=== PATIENT | female | born 1950 | race Caucasian/White ===

== ENCOUNTER 2017-12-09 12:48 | Inpatient (IN) | payer MEDICARE, OTHER ==
[2017-12-09] VITALS (13 sets, daily range): BP systolic 145–192; BP diastolic 67–95; PULSE 103–132; RESP 20–39; TEMP 99.1–102.4; O2SAT 20–100
[2017-12-09] MEDS ORDERED: TRAM50TA PO (13:11)
[2017-12-09] MEDS ORDERED: PROM25TA10 PO (13:11)
[2017-12-09] MEDS ORDERED: METF500T PO (13:11)
[2017-12-09] MEDS ORDERED: CLON0.5T PO (13:11)
[2017-12-09 13:42] LABS: AUTOMATED NEUTROPHIL # 8.3 TH/MM3 (1.8-7.7); BASOPHIL # 0.1 TH/MM3 (0-0.2); BASOPHIL % 0.7 % (0.0-2.0); EOSINOPHIL % 0.1 % (0.0-4.0); HEMATOCRIT 42.6 % (35.0-46.0); HEMOGLOBIN 14.4 GM/DL (11.6-15.3); LYMPH % 14.5 % (9.0-44.0); LYMPHOCYTE # 1.5 TH/MM3 (1.0-4.8); MEAN CELL VOLUME 90.1 FL (80.0-100.0); MEAN CORPUSCULAR HEMOGLOBIN 30.5 PG (27.0-34.0); MEAN CORPUSCULAR HGB CONC 33.8 % (32.0-36.0); MEAN PLATELET VOLUME 8.7 FL (7.0-11.0); MONO % 3.4 % (0.0-8.0); MONOCYTE # 0.4 TH/MM3 (0-0.9); NEUT % 81.3 % (16.0-70.0); PLATELET COUNT 238 TH/MM3 (150-450); RED BLOOD COUNT 4.73 MIL/MM3 (4.00-5.30); RED CELL DISTRIBUTION WIDTH 11.8 % (11.6-17.2); WHITE BLOOD COUNT 10.3 TH/MM3 (4.0-11.0)
[2017-12-09] MEDS ORDERED: SODIUM CHLORIDE 0.9% FLUSH 10 ML FLUSH IV FLUSH PRN (13:45)
[2017-12-09 13:50] LABS: BILIRUBIN, URINE NEG (NEG); BLOOD, URINE NEG (NEG); GLUCOSE,URINE NEG (NEG); KETONE, URINE 40 mg/dL (NEG); NITRITE,URINE NEG (NEG); PH, URINE 6.5 (5.0-8.5); URINE LEUKOCYTE ESTERASE NEG (NEG)
[2017-12-09 13:50] LABS: CHLORIDE 96 MEQ/L (98-107); SODIUM (NA) 132 MEQ/L (136-145)
[2017-12-09 13:54] LABS: ALBUMIN 3.8 GM/DL (3.4-5.0); BLOOD UREA NITROGEN 10 MG/DL (7-18); GLUCOSE,RANDOM 197 MG/DL (74-106)
[2017-12-09 13:57] LABS: ALT (GPT) 27 U/L (10-53); AST (GOT) 20 U/L (15-37)
[2017-12-09 13:58] LABS: CREATININE 0.57 MG/DL (0.50-1.00); GLOMERULAR FILTRATION RATE 106 ML/MIN (>89)
[2017-12-09 13:59] LABS: TOTAL BILIRUBIN ADULT 0.4 MG/DL (0.2-1.0); TOTAL PROTEIN 7.8 GM/DL (6.4-8.2)
[2017-12-09 14:00] LABS: ALKALINE PHOSPHATASE 105 U/L (45-117)
[2017-12-09 14:02] LABS: TROPONIN I LESS THAN 0.02 NG/ML (0.02-0.05)
[2017-12-09 14:06] LABS: URINE COLOR YELLOW (YELLW/STRAW)
[2017-12-09 14:07] LABS: BACTERIA, URINE FEW /hpf; RBC, URINE 0-3 /hpf (0-3); SQUAMOUS EPITHELIAL CELL URINE 0-5 /hpf (0-5)
--- NOTE | 2017-12-09 14:14 | RADRPT ---
EXAM DATE/TIME: 12/09/2017 13:54 [facility] COMPARISON: No previous studies available for comparison. INDICATIONS : Altered mental status. Cephalgia. RADIATION DOSE: 63.65 CTDIvol (mGy) MEDICAL HISTORY : Diabetes mellitus type 2. Hypertension. SURGICAL HISTORY : None. ENCOUNTER: Initial ACUITY: 1 day PAIN SCALE: 7/10 LOCATION: cranial TECHNIQUE: Multiple contiguous axial images were obtained of the head. Using automated exposure control and adj ustment of the mA and/or kV according to patient size, radiation dose was kept as low as reasonably a chievable to obtain optimal diagnostic quality images. DICOM format image data is available electro nically for review and comparison. FINDINGS: CEREBRUM: The examination demonstrates a punctate area of cortical infarct within the white matter of right par ietal cortex. The remainder of the brain parenchyma is unremarkable appearance. No mass lesion is see n. There is no acute cranial hemorrhage. No extra-axial fluid collections are identified. POSTERIOR FOSSA: The cerebellum and brainstem are intact. The 4th ventricle is midline. The cerebellopontine angle i s unremarkable. EXTRACRANIAL: The visualized portion of the orbits is intact. SKULL: The calvaria is intact. No evidence of skull fracture. CONCLUSION: 1. 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 2. No acute intracranial abnormality is identified. Severino Fabian MD on December 09, 2017 at 14:06 Board Certified Radiologist. This report was verified electronically.
--- NOTE | 2017-12-09 14:27 | PD ---
HPI . Altered mental status Chief Complaint: Altered Mental Status Time Seen by Provider: 13:30 Travel History International Travel<30 days: No Contact w/Intl Traveler<30days: No Traveled to known affect area: No History of Present Illness HPI History is very sketchy. History was obtained from her friend. The friend reports that they were playing cards last night and that the patient seemed normal. Complaining with a mild headache and took something for it. She was last seen normal at 8 PM last night. The patient presents house this morning and was very confused. She was unable to recall simple things such as her son' s phone number for her pass code to unlock her phone. She was vomiting. The friend was concerned and brought her here. The patient states that she "hurts." I asked her if she had a headache and she responded "yes." She is able to tell me that the head pain is "bad." PFSH Past Medical History Diabetes: Yes Patient Takes Glucophage: Yes Hypertension: Yes Social History Alcohol Use: No Tobacco Use: No Substance Use: No Allergies-Medications (Allergen,Severity, Reaction): Coded Allergies: No Known Allergies (Unverified , 12/09/17) Reported Meds & Prescriptions Reported Meds & Active Scripts Active Reported Clonazepam 0.5 Mg Tab 0.5 Mg PO BID Tramadol (Tramadol HCl) 50 Mg Tab 50 Mg PO Q6H PRN Metformin (Metformin HCl) 500 Mg Tab 500 Mg PO BIDPC Phenergan (Promethazine HCl) 25 Mg Tablet 25 Mg PO Q6H PRN Review of Systems ROS Limitations: Clinical Condition, Altered Mental Status Physical Exam Narrative GENERAL: Patient is lying on stretcher sometimes with her eyes closed. She has bilious emesis on the front of her down. SKIN: warm/dry. HEAD: Normocephalic. Atraumatic. EYES: Pupils equal and round. Pupils appear normal size. Extraocular movements are intact. No scleral icterus. No injection or drainage. ENT: No nasal bleeding or discharge. Mucous membranes pink and moist. NECK: Trachea midline. Full range of motion without pain.. Supple. CARDIOVASCULAR: Regular rate and rhythm. RESPIRATORY: No accessory muscle use. Clear to auscultation. Breath sounds equal bilaterally. GASTROINTESTINAL: Abdomen soft. Nontender. Bowel sounds present. Nondistended. MUSCULOSKELETAL: No obvious deformities. NEUROLOGICAL: Awake and alert. She is able to tell me her name. She follows commands although sometimes she is slow to follow commands. Cranial nerves II through XII are grossly intact. 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 Finger- nose-finger exam is slow but intact. Babinski's are downgoing bilaterally. PSYCHIATRIC: Unable to assess. Data Data Last Documented VS Vital Signs Date Time Temp Pulse Resp B/P (MAP) Pulse Ox O2 Delivery O2 Flow Rate FiO2 12/09/17 15:51 110 20 160/74 (102) 100 12/09/17 13:05 99.1 Orders Orders Complete Blood Count With Diff (12/09/17 13:31) Comprehensive Metabolic Panel (12/09/17 13:31) Creatine Kinase (Cpk) (12/09/17 13:31) Prothrombin Time / Inr (Pt) (12/09/17 13:31) Act Partial Throm Time (Ptt) (12/09/17 13:31) Troponin I (12/09/17 13:31) Urinalysis - C+S If Indicated (12/09/17 13:31) Ct Brain W/O Iv Contrast(Rout) (12/09/17 13:31) Blood Glucose (12/09/17 13:31) Ecg Monitoring (12/09/17 13:31) Iv Access Insert/Monitor (12/09/17 13:31) Cath For Specimen (12/09/17 13:31) Oximetry (12/09/17 13:31) Sodium Chloride 0.9% Flush (Ns Flush) (12/09/17 13:45) Drug Screen, Random Urine (12/09/17 13:31) Urine Culture (12/09/17 13:45) Diphenhydramine Inj (Benadryl Inj) (12/09/17 14:30) Prochlorperazine Inj (Compazine Inj) (12/09/17 14:30) Electrocardiogram (12/09/17 12:55) Lumbar Puncture (12/09/17 ) Vital Signs (Adult) .On admission (12/09/17 15:39) Notify Radiology (12/09/17 15:39) Diet Npo (12/09/17 Dinner) Bacterial Antigen Csf (12/09/17 15:39) Csf Hsv I/Ii Dna,Pcr (12/09/17 15:39) Csf Cell Count + Differential (12/09/17 15:39) Glucose, Csf (12/09/17 15:39) Total Protein, Csf (12/09/17 15:39) Csf Culture And Gram Stain (12/09/17 15:39) Admit Order (Ed Use Only) (12/09/17 ) Vital Signs (Adult) Q4H (12/09/17 16:25) Activity Bed Rest (12/09/17 16:25) Notify Dr: Other (12/09/17 16:25) Labs Laboratory Tests Test 12/09/17 13:35 12/09/17 13:45 White Blood Count 10.3 TH/MM3 Red Blood Count 4.73 MIL/MM3 Hemoglobin 14.4 GM/DL Hematocrit 42.6 % Mean Corpuscular Volume 90.1 FL Mean Corpuscular Hemoglobin 30.5 PG Mean Corpuscular Hemoglobin Concent 33.8 % Red Cell Distribution Width 11.8 % Platelet Count 238 TH/MM3 Mean Platelet Volume 8.7 FL Neutrophils (%) (Auto) 81.3 % Lymphocytes (%) (Auto) 14.5 % Monocytes (%) (Auto) 3.4 % Eosinophils (%) (Auto) 0.1 % Basophils (%) (Auto) 0.7 % Neutrophils # (Auto) 8.3 TH/MM3 Lymphocytes # (Auto) 1.5 TH/MM3 Monocytes # (Auto) 0.4 TH/MM3 Eosinophils # (Auto) 0.0 TH/MM3 Basophils # (Auto) 0.1 TH/MM3 CBC Comment DIFF FINAL Differential Comment Prothrombin Time 10.0 SEC Prothromb Time International Ratio 1.0 RATIO Activated Partial Thromboplast Time 24.9 SEC Blood Urea Nitrogen 10 MG/DL Creatinine 0.57 MG/DL Random Glucose 197 MG/DL Total Protein 7.8 GM/DL Albumin 3.8 GM/DL Calcium Level 9.0 MG/DL Alkaline Phosphatase 105 U/L Aspartate Amino Transf (AST/SGOT) 20 U/L Alanine Aminotransferase (ALT/SGPT) 27 U/L Total Bilirubin 0.4 MG/DL Sodium Level 132 MEQ/L Potassium Level 3.7 MEQ/L Chloride Level 96 MEQ/L Carbon Dioxide Level 26.0 MEQ/L Anion Gap 10 MEQ/L Estimat Glomerular Filtration Rate 106 ML/MIN Total Creatine Kinase 61 U/L Troponin I LESS THAN 0.02 NG/ML Urine Collection Type CATH Urine Color YELLOW Urine Turbidity CLEAR Urine pH 6.5 Urine Specific [place] 1.025 Urine Protein 100 mg/dL Urine Glucose (UA) NEG mg/dL Urine Ketones 40 mg/dL Urine Occult Blood NEG Urine Nitrite NEG Urine Bilirubin NEG Urine Leukocyte Esterase NEG Urine RBC 0-3 /hpf Urine WBC 6-8 /hpf Urine Squamous Epithelial Cells 0-5 /hpf Urine Bacteria FEW /hpf Microscopic Urinalysis Comment CULTURE INDICATED Urine Opiates Screen NEG Urine Barbiturates Screen NEG Urine Amphetamines Screen NEG Urine Benzodiazepines Screen NEG Urine Cocaine Screen NEG Urine Cannabinoids Screen NEG MDM Medical Decision Making Medical Screen Exam Complete: Yes Emergency Medical Condition: Yes Interpretation(s) EKG shows a sinus rhythm with no ST segment changes Differential Diagnosis Differential diagnosis of altered mental status includes but is not limited to infection, electrolyte abnormality, neurological event, intoxication Narrative Course This patient comes in with altered mental status. She has never been here before so old records or not helpful. She is not able to tell me anything about her past medical history. She does indicate she has a headache. She acts a little bit like someone with a head bleed. However, her neurological exam is nonfocal. She does not have any signs or symptoms of meningitis such as fever or stiff neck. I am treating her apparent headache with Compazine and Benadryl. Last Impressions Head CT 12/09/17 1331 Signed Impressions: Service Date/Time: Saturday, December 09, 2017 13:54 - CONCLUSION: 1. 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 2. No acute intracranial abnormality is identified. Severino Fabian MD CBC & BMP Diagram 12/09/17 13:35 Total Protein 7.8, Albumin 3.8, Calcium Level 9.0, Alkaline Phosphatase 105, Aspartate Amino Transf (AST/SGOT) 20, Alanine Aminotransferase (ALT/SGPT) 27, Total Bilirubin 0.4 UA>>6-8 WBC and few bact but is nit and LE neg. Drug screen is neg. I have not found an etiology for this patient's altered mental status. I will proceed with a spinal tap. Spinal tap was not successful. It will be done by IR. The patient will be admitted to the hospital for further evaluation and treatment. Critical Care Narrative Aggregate critical care time was 60 minutes. Time to perform other separately billable procedures was not included in the critical care time. My time did not include minutes spent treating any other patients simultaneously or on activities that did not directly contribute to the patient's treatment. The services I provided to this patient were to treat and/or prevent clinically significant deterioration due to altered mental status I provided critical care services requiring my management, as noted below: Chart data review, documentation time, medication orders and management, vital sign assessments/reviewing monitor data, ordering and reviewing lab tests, ordering and interpreting/reviewing x-rays and diagnostic studies, care of the patient and discussion of the patient with the admitting physicians Procedures Procedure Narrative LUMBAR PUNCTURE: The patient was placed in the left lateral decubitus position. The lumbar area of the back was prepped with Betadine and sterilely draped. The L3 -- L4 interspace was infiltrated with 1% lidocaine plain. Number 23 gauge LP needle was placed in the interspace. The tap was unsuccessful. Physician Communication Physician Communication Dr. Martin Diagnosis Primary Impression: Altered mental status Qualified Codes: R41.0 - Disorientation, unspecified Admitting Information Admitting Physician Requests: Admit Condition: Stable Inez Russo MD Dec 09, 2017 14:27
[2017-12-09] MEDS ORDERED: PROCHLORPERAZINE INJ 10 MG/2 ML VIAL IV PUSH ONE (14:30)
[2017-12-09] MEDS ORDERED: diphenhydrAMINE HCL 50 MG/ML VIAL IV PUSH ONE (14:30)
--- NOTE | 2017-12-09 16:32 | EKG ---
Date Performed: 12/09/2017 Time Performed: 12:55:49 PTAGE: 67 years EKG: Sinus rhythm NONSPECIFIC T-WAVE ABNORMALITY BORDERLINE ECG NO PREVIOUS TRACING DOCTOR: Lukas Brown Interpretating Date/Time 12/09/2017 16:30:17
--- NOTE | 2017-12-09 18:17 | HHI.HP ---
[facility] Unknown Admission Diagnosis AMS Diagnoses: Chief Complaint: headache/vomiting/confusion Travel History International Travel<30 Days: No Contact w/Intl Traveler <30 Da: No Traveled to Known Affected Are: No History of Present Illness 67-year-old white female being admitted for encephalopathy, possible undiagnosed intracranial hx. history is limited as the patient is not a great historian likely from her current medical condition. Son and [id number] at bedside. Patient was in her usual state of health until sometime yesterday evening when she was playing a game and was noted to be intermittently spacing out. Later this morning her neighbors found the patient to be having a headache associated with some vomiting. They noticed that she was very confused and thus prompted her to seek medical attention. There are no reports of any falls or head trauma. Per the son, the patient has no substantial medical history except DM. There are no reports of any intracranial processes including tumors or strokes in the patient. FH: Report of a CVA in the family. Social hx entails that the patient lives by herself and there is no smoking hx. Review of Systems Except as stated in HPI: all other systems reviewed are Neg Past Family Social History Past Medical History DM Allergies: Coded Allergies: No Known Allergies (Unverified , 12/09/17) Physical Exam Vital Signs Vital Signs Date Time Temp Pulse Resp B/P (MAP) Pulse Ox O2 Delivery O2 Flow Rate FiO2 12/09/17 17:32 12/09/17 15:51 110 20 160/74 (102) 100 12/09/17 14:51 103 20 176/68 (104) 95 12/09/17 13:38 96 12/09/17 13:05 99.1 130 20 192/95 (127) 98 Physical Exam VS: afebrile GENERAL: Appears to be shivering, awake, alert, not fully cooperative with exam in the sense that she needs to be prompted a number of times to answer the same question SKIN: Warm and dry. EYES: Pupils equal and round. No scleral icterus. No injection or drainage. ENT: No nasal bleeding or discharge. Mucous membranes pink and moist. CARDIOVASCULAR: Regular rate and rhythm. no murmurs RESPIRATORY: No accessory muscle use. Clear to auscultation. Breath sounds equal bilaterally. GASTROINTESTINAL: Abdomen soft, non-tender, nondistended. Extremities: No clubbing, cyanosis, or edema. No obvious deformities. MUSCULOSKELETAL: adequate muscle bulk and tone for age and habitus NEUROLOGICAL: Awake and alert. No obvious cranial nerve deficits. No facial droop nor slurred speech noted. unable to assess BL UE prox strength either poor understanding or poor strength. Unable to dorsiflex or plantarflex her right ankle upon prompting; intact dorsiflex and plantarflexion on the left ankle. No neck rigidity. PSYCHIATRIC: Appropriate mood and affect; insight and judgment normal. Laboratory Laboratory Tests Test 12/09/17 13:35 12/09/17 13:45 White Blood Count 10.3 Red Blood Count 4.73 Hemoglobin 14.4 Hematocrit 42.6 Mean Corpuscular Volume 90.1 Mean Corpuscular Hemoglobin 30.5 Mean Corpuscular Hemoglobin Concent 33.8 Red Cell Distribution Width 11.8 Platelet Count 238 Mean Platelet Volume 8.7 Neutrophils (%) (Auto) 81.3 Lymphocytes (%) (Auto) 14.5 Monocytes (%) (Auto) 3.4 Eosinophils (%) (Auto) 0.1 Basophils (%) (Auto) 0.7 Neutrophils # (Auto) 8.3 Lymphocytes # (Auto) 1.5 Monocytes # (Auto) 0.4 Eosinophils # (Auto) 0.0 Basophils # (Auto) 0.1 CBC Comment DIFF FINAL Differential Comment Prothrombin Time 10.0 Prothromb Time International Ratio 1.0 Activated Partial Thromboplast Time 24.9 Blood Urea Nitrogen 10 Creatinine 0.57 Random Glucose 197 Total Protein 7.8 Albumin 3.8 Calcium Level 9.0 Alkaline Phosphatase 105 Aspartate Amino Transf (AST/SGOT) 20 Alanine Aminotransferase (ALT/SGPT) 27 Total Bilirubin 0.4 Sodium Level 132 Potassium Level 3.7 Chloride Level 96 Carbon Dioxide Level 26.0 Anion Gap 10 Estimat Glomerular Filtration Rate 106 Total Creatine Kinase 61 Troponin I LESS THAN 0.02 Urine Collection Type CATH Urine Color YELLOW Urine Turbidity CLEAR Urine pH 6.5 Urine Specific [place] 1.025 Urine Protein 100 Urine Glucose (UA) NEG Urine Ketones 40 Urine Occult Blood NEG Urine Nitrite NEG Urine Bilirubin NEG Urine Leukocyte Esterase NEG Urine RBC 0-3 Urine WBC 6-8 Urine Squamous Epithelial Cells 0-5 Urine Bacteria FEW Microscopic Urinalysis Comment CULTURE INDICATED Urine Opiates Screen NEG Urine Barbiturates Screen NEG Urine Amphetamines Screen NEG Urine Benzodiazepines Screen NEG Urine Cocaine Screen NEG Urine Cannabinoids Screen NEG Date/Time Source Procedure Growth Status 12/09/17 13:45 Urine Catheterized Urine Urine Culture Pending Received Result Diagram: 12/09/17 1335 12/09/17 1335 Imaging Last Impressions Head CT 12/09/17 1331 Signed Impressions: Service Date/Time: Saturday, December 09, 2017 13:54 - CONCLUSION: 1. 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 2. No acute intracranial abnormality is identified. Severino Fabian MD Last Impressions Head CT 12/09/171 Signed Impressions: Service Date/Time: Saturday, December 09, 2017 13:54 - CONCLUSION: 1. 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 2. No acute intracranial abnormality is identified. Severino Fabian MD Caprini VTE Risk Assessment Caprini VTE Risk Assessment: Mod/High Risk (score >= 2) Caprini Risk Assessment Model Point Value = 1 Point Value = 2 Point Value = 3 Point Value = 5 Age 41-60 Minor surgery BMI > 25 kg/m2 Swollen legs Varicose veins or History of unexplained or recurrent spontaneous Oral contraceptives or hormone replacement Sepsis (< 1 month) Serious lung disease, including pneumonia (< 1 month) Abnormal pulmonary function Acute myocardial infarction Congestive heart failure (< 1 month) History of inflammatory bowel disease Medical patient at bed rest Age 61-74 Arthroscopic surgery Major open surgery (> 45 min) Laparoscopic surgery (> 45 min) Malignancy Confined to bed (> 72 hours) Immobilizing plaster cast Central venous access Age >= 75 History of VTE Family history of VTE Factor V Leiden Prothrombin [id number] Lupus anticoagulant Anticardiolipin antibodies Elevated serum homocysteine Heparin-induced thrombocytopenia Other congenital or acquired thrombophilia Stroke (< 1 month) Elective arthroplasty Hip, pelvis, or leg fracture Acute spinal cord injury (< 1 month) Prophylaxis Regimen Total Risk Factor Score Risk Level Prophylaxis Regimen 0-1 Low Early ambulation 2 Moderate Order ONE of the following: *Sequential Compression Device (SCD) *Heparin 5000 units SQ BID 3-4 Higher Order ONE of the following medications: *Heparin 5000 units SQ TID *Enoxaparin/Lovenox 40 mg SQ daily (WT < 150 kg, CrCl > 30 mL/min) *Enoxaparin/Lovenox 30 mg SQ daily (WT < 150 kg, CrCl > 10-29 mL/min) *Enoxaparin/Lovenox 30 mg SQ BID (WT < 150 kg, CrCl > 30 mL/min) AND/OR *Sequential Compression Device (SCD) 5 or more Highest Order ONE of the following medications: *Heparin 5000 units SQ TID (Preferred with Epidurals) *Enoxaparin/Lovenox 40 mg SQ daily (WT < 150 kg, CrCl > 30 mL/min) *Enoxaparin/Lovenox 30 mg SQ daily (WT < 150 kg, CrCl > 10-29 mL/min) *Enoxaparin/Lovenox 30 mg SQ BID (WT < 150 kg, CrCl > 30 mL/min) AND *Sequential Compression Device (SCD) Assessment and Plan Assessment and Plan Encephalopathy - No clear etiology at this time pinpointed but possible subarachnoid hemorrhage needs to be ruled out given symptoms that are consistent with increased intracranial pressure -in this case this patient had a headache with vomiting and confusion. Head CT is negative. LP in ER unsuccessful. IR to perform LP. 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 In the case of services not specified as inpatient-only, they are appropriately provided as inpatient services in accordance with the 2-midnight benchmark. Estimated LOS (days): 3 3 days is the estimated time the patient will need to remain in the hospital, assuming treatment plan goals are met and no additional complications. Post-Hospital Plan: Home Tj Martin MD Dec 09, 2017 18:17
[2017-12-09] MEDS ORDERED: DEXTROSE 50% IN WATER 50 ML VIAL(D50) IV PUSH PRN (18:30)
[2017-12-09] MEDS ORDERED: LORazepam 1 MG TAB PO PRN (18:30)
[2017-12-09] MEDS ORDERED: traMADol HCL 50 MG TAB PO PRN (18:30)
[2017-12-09] MEDS ORDERED: PROMETHAZINE HCL 25 MG TAB PO PRN (18:30)
[2017-12-09] MEDS ORDERED: GLUCAGON 1 MG/ML VIAL OTHER PRN (18:30)
--- NOTE | 2017-12-09 18:54 | PD.RAD ---
Post Procedure Progress Note Pre Procedure Diagnosis: (1) Altered mental status Post Procedure Diagnosis: (1) Altered mental status Procedure Date: Dec 09, 2017 Supervising Radiologist: Jc Marc Proceduralist/Assist: Marguerite Centeno RT(R)(), Viktor Brown RT(R) Anesthesia: Local Plan of Activity Patient to Unit: Nursing Unit Patient Condition: Fair See PACS Report for procedural detail/treatment Spinal Procedure Lumbar Puncture L3-L4 Fluid Removal (CCs): 12 Fluid Description: Clear Puncture Time: 18:45 Jc Marc MD Dec 09, 2017 18:54
--- NOTE | 2017-12-09 18:58 | RADRPT ---
EXAM DATE/TIME: 12/09/2017 18:16 [facility] COMPARISON: No previous studies available for comparison. INDICATIONS : Evaluate for infection. MEDICAL HISTORY : Diabetes mellitus type 2. Hypertension SURGICAL HISTORY : None. ENCOUNTER: Initial ACUITY: 1 day PAIN SCORE: 0/10 LOCATION: Bilateral chest FINDINGS: PA and lateral views of the chest demonstrate the lungs to be symmetrically aerated without evidence of mass, infiltrate or effusion. The cardiomediastinal contours are unremarkable. Osseous structure s are intact. CONCLUSION: 1. No acute cardiopulmonary disease. Ej Rivas MD on December 09, 2017 at 18:57 Board Certified Radiologist. This report was verified electronically.
[2017-12-09 20:34] LABS: TOTAL PROTEIN,CSF 30.9 MG/DL (15.0-45.0)
[2017-12-09] MEDS: cefTRIAXone INJ 1,000 MG in SODIUM CHLORIDE 0.9% INJ 100 ML IV SCH (20:36)
[2017-12-09] MEDS: INSULIN NovoLIN REGULAR SUPPLEMENTAL SCALE SQ SCH (20:36)
[2017-12-09] MEDS: SODIUM CHLOR 0.9% 1000 ML INJ 1,000 ML IV SCH (20:37)
[2017-12-09 20:52] LABS: RBC TUBE #1 138 /MM3; SUPERNATE COLOR TUBE #1 CLEAR (CLEAR); VOLUME TUBE # 1 1.3 ML; WBC TUBE #1 3 /MM3 (0-10)
[2017-12-09 20:53] LABS: CSF HISTIOCYTES 4 %; CSF LYMPHOCYTES 70 %; CSF NEUTROPHILS 26 %
[2017-12-09 20:54] LABS: CSF LYMPHOCYTES 79 %; CSF NEUTROPHILS 14 %; RBC TUBE #4 79 /MM3; WBC TUBE #4 14 /MM3 (0-10)
[2017-12-09 20:55] LABS: CSF HISTIOCYTES 7 %
[2017-12-09] MEDS ORDERED: ACETAMINOPHEN 650 MG SUPP RECTAL ONE (22:15)
[2017-12-09] MEDS ORDERED: ACETAMINOPHEN 650 MG SUPP RECTAL PRN (22:15)
[2017-12-09] MEDS ORDERED: CHLORHEXIDINE GLUCONATE 2 % 1 PACK (2 CLOTHS)(extra cloths) TOPICAL PRN (23:30)
[2017-12-10] VITALS (39 sets, daily range): BP systolic 144–191; BP diastolic 68–96; PULSE 72–128; RESP 22–39; TEMP 99.2–101.7; O2SAT 91–98
[2017-12-10] MEDS: SODIUM CHLOR 0.9% 1000 ML INJ 1,000 ML IV SCH ×3 (04:00→20:18)
[2017-12-10] MEDS: CHLORHEXIDINE GLUCONATE 2 % 1 PACK (2 CLOTHS)(taper/protocol) TOPICAL SCH (04:00)
[2017-12-10] MEDS: INSULIN NovoLIN REGULAR SUPPLEMENTAL SCALE SQ SCH ×4 (07:33→20:21)
[2017-12-10 07:46] LABS: AUTOMATED NEUTROPHIL # 8.6 TH/MM3 (1.8-7.7); BASOPHIL # 0.4 TH/MM3 (0-0.2); BASOPHIL % 2.9 % (0.0-2.0); EOSINOPHIL % 0.1 % (0.0-4.0); HEMATOCRIT 39.4 % (35.0-46.0); HEMOGLOBIN 13.5 GM/DL (11.6-15.3); LYMPH % 18.4 % (9.0-44.0); LYMPHOCYTE # 2.2 TH/MM3 (1.0-4.8); MEAN CORPUSCULAR HGB CONC 34.4 % (32.0-36.0); MEAN PLATELET VOLUME 8.3 FL (7.0-11.0); MONO % 7.2 % (0.0-8.0); MONOCYTE # 0.9 TH/MM3 (0-0.9); NEUT % 71.4 % (16.0-70.0); PLATELET COUNT 255 TH/MM3 (150-450); RED BLOOD COUNT 4.38 MIL/MM3 (4.00-5.30); RED CELL DISTRIBUTION WIDTH 12.2 % (11.6-17.2); WHITE BLOOD COUNT 12.1 TH/MM3 (4.0-11.0)
[2017-12-10 07:58] LABS: CALCIUM 8.4 MG/DL (8.5-10.1)
[2017-12-10 07:59] LABS: BICARBONATE 25.7 MEQ/L (21.0-32.0)
[2017-12-10 08:02] LABS: CREATININE 0.61 MG/DL (0.50-1.00)
--- NOTE | 2017-12-10 11:36 | RADRPT ---
EXAM DATE/TIME: 12/09/2017 18:30 [facility] COMPARISON: No previous studies available for comparison. INDICATIONS : Patient presents with altered mental status in need of lumbar puncture for further evaluation. MEDICAL HISTORY : DM HTN SURGICAL HISTORY : N/a ENCOUNTER: Initial ACUITY: 1 day PAIN SCORE: 5/10 LOCATION: Headache LUMBAR PUNCTURE TIME: 18:43 hours FLUORO TIME: 1.0 minutes IMAGE SERIES: 0 ACCESS LEVEL: L3-4 FLUID: 11.5 cc of clear CSF was collected and sent to the laboratory for analysis. PROCEDURE : 1. Fluoroscopic guided lumbar puncture. The risks, benefits and alternatives to the procedure were explained and verbal and written consent w as obtained. The site was prepped in sterile fashion. Full sterile technique was used, including ca p, mask, sterile gloves and gown and a large sterile sheet. Hand hygiene and 2% chlorhexidine and/or betadine/alcohol prep was utilized per protocol for cutaneous antisepsis. The skin and subcutaneous tissues were infiltrated with local anesthetic solution. With fluoroscopic guidance the lumbar thecal sac was punctured at the level above. The fluid describ ed above was removed without difficulty. The patient tolerated the procedure well and there were no complications. CONCLUSION: Uncomplicated fluoroscopically guided lumbar puncture. Jc Marc MD on December 10, 2017 at 11:34 Board Certified Radiologist. This report was verified electronically.
--- NOTE | 2017-12-10 12:06 | HHI.PR ---
Subjective Remarks Patient sleeping in bed, woke up to voice, she only was oriented to person she recognized her son, but otherwise she was confused and noncoherent Discussed with the son, patient has been running fever all night long max 102.4 , she was started on Rocephin, I will add vancomycin and ampicillin for bacterial meningitis coverage awaiting for the full results of CSF, also will add acyclovir, and I will consult ID, awaiting neurology consultation, MRI has not been done yet, awaiting organic extractions technician to come from [facility] for an MRI Objective Vitals Vital Signs Date Time Temp Pulse Resp B/P (MAP) Pulse Ox O2 Delivery O2 Flow Rate FiO2 12/10/17 11:20 99.2 12/10/17 10:01 84 27 158/74 (102) 98 12/10/17 10:00 78 12/10/17 09:01 106 27 165/68 (100) 95 12/10/17 09:00 99.2 12/10/17 08:30 100.2 12/10/17 08:00 86 25 178/77 (110) 93 12/10/17 08:00 86 12/10/17 07:51 96 28 175/87 (116) 95 12/10/17 07:50 Nasal Cannula 12/10/17 07:30 101.4 87 12/10/17 07:01 114 31 168/79 (108) 93 12/10/17 06:01 108 26 168/73 (104) 94 12/10/17 06:00 112 12/10/17 05:01 98 25 173/74 (107) 96 12/10/17 04:01 100.0 118 26 166/90 (115) 93 12/10/17 04:00 126 12/10/17 03:01 108 27 173/76 (108) 94 12/10/17 02:01 122 31 173/77 (109) 94 12/10/17 02:00 124 12/10/17 01:01 102 27 166/70 (102) 96 12/10/17 00:01 101.7 126 32 144/72 (96) 93 12/10/17 00:00 128 12/09/17 23:01 132 32 170/79 (109) 93 12/09/17 22:01 126 39 145/69 (94) 92 2/23/18 22:00 132 12/09/17 21:47 100.2 12/09/17 21:01 130 31 145/71 (95) 91 12/09/17 20:36 132 25 147/67 (93) 93 12/09/17 20:13 102.4 12/09/17 20:00 108 12/09/17 19:05 151/69 (96) 12/09/17 17:32 12/09/17 15:51 110 20 160/74 (102) 100 12/09/17 14:51 103 20 176/68 (104) 95 12/09/17 13:38 96 12/09/17 13:05 99.1 130 20 192/95 (127) 98 I/O 12/09/17 12/09/17 12/09/17 12/10/17 12/10/17 12/10/17 06:59 14:59 22:59 06:59 14:59 22:59 Intake Total 100 ml 1250 ml Output Total 400 ml Balance 100 ml 850 ml Intake IV Total 100 ml 1250 ml Output Urine Total 400 ml # Voids 1 Result Diagram: 12/10/17 0736 12/10/17 0736 Objective Remarks GENERAL: This is a well-nourished, well-developed patient, in no apparent distress. SKIN: No rashes, warm and dry HEAD: Atraumatic. Normocephalic. EYES: Pupils equal round and reactive. Extraocular motions intact. No scleral icterus. ENT: Nose without bleeding, or drainage, Airway patent. NECK: Trachea midline. Supple CARDIOVASCULAR: Regular rate and rhythm without murmurs, gallops, or rubs. RESPIRATORY: Fair air entry bilaterally. No wheezes, rales, or rhonchi. GASTROINTESTINAL: Abdomen soft, non-tender, nondistended. Positive bowel sounds MUSCULOSKELETAL: Extremities without clubbing, cyanosis, or edema. Pedal pulses appreciated NEUROLOGICAL: A limited exam due to patient not fully able to comply with commands, but cranial nerves II through XII seems to be within normal limits, she has weakness in the upper and lower extremity, confusion and mixed symptoms of global aphasia versus only confusion A/P Assessment and Plan Acute change in mental status with febrile illness suspicious of meningitis -Fever all night long, started on Rocephin, I added Vanco and ampicillin patient is above 50 years old, also added dexamethasone and acyclovir, consult ID and awaiting neurology consultation - MRI still pending awaiting organic extractions technician to come from the main, previous CT head without contrast shows a small encephalomalacia consistent with stroke -Initiating stroke protocol and permissive hypertension - NO NSAIDS or antiplatelets for the night - fall precautions - RN swallow assessment with ST eval; PT and OT - 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
[2017-12-10] MEDS ORDERED: Vancomycin Consult Pharmacy 1 EA OTHER SCH (12:30)
[2017-12-10] MEDS: DEXAMETHASONE SOD PHOS 4 MG/ML VIAL IV PUSH SCH ×3 (13:25→23:33)
[2017-12-10] MEDS: AMPICILLIN INJ 1,000 MG in SODIUM CHLORIDE 0.9% INJ 100 ML IV SCH ×2 (13:34→18:47)
[2017-12-10] MEDS ORDERED: VANCOMYCIN INJ 2,000 MG in SODIUM CHLORID 0.9% 500 ML INJ 500 ML IV ONE (14:00)
[2017-12-10] MEDS: ACYCLOVIR INJ 700 MG in SODIUM CHLORIDE 0.9% INJ 100 ML IV SCH ×2 (14:27→23:08)
[2017-12-10] MEDS ORDERED: ASPIRIN 325 MG TAB PO ONE (15:30)
--- NOTE | 2017-12-10 16:25 | RADRPT ---
EXAM DATE/TIME: 12/10/2017 15:30 [facility] COMPARISON: CT BRAIN W/O CONTRAST, December 09, 2017, 13:54. MRI BRAIN W/O CONTRAST, December 10, 2017, 15:30. INDICATIONS : Altered mental status. MEDICAL HISTORY : Diabetes mellitus type 2. SURGICAL HISTORY : Hysterectomy. ENCOUNTER: Initial ACUITY: 1 day PAIN SCORE: 0/10 LOCATION: cranial Please note a normal MRA of the brain does not entirely exclude the possibility of a small aneurysm, nor the possibility of distal intracranial vessel disease. TECHNIQUE: 3D time of flight MRA was performed. Source images, multiplanar STS MIP, and 3D volume MIP reconstru ctions were reviewed. FINDINGS: Anterior circulation: The internal carotid arteries demonstrate no abnormality or atherosclerotic change. A1 segments and m ore distal anterior cerebral arteries are symmetric and within normal limits. The middle cerebral art carol branches demonstrate symmetric flow related enhancement. No aneurysm or high-grade stenosis is id entified. Posterior circulation: There are patent posterior cerebral arteries bilaterally. Vertebral arteries are codominant. The basi lar artery and posterior cerebral arteries demonstrate no significant stenosis or abnormality. No ane urysm is visualized. CONCLUSION: No acute intracranial vascular abnormality is identified. Jc Wilhelm MD on December 10, 2017 at 16:20 Board Certified Radiologist. This report was verified electronically.
--- NOTE | 2017-12-10 16:28 | RADRPT ---
EXAM DATE/TIME: 12/10/2017 15:30 [facility] COMPARISON: CT BRAIN W/O CONTRAST, December 09, 2017, 13:54. INDICATIONS : Altered mental status. MEDICAL HISTORY : Diabetes mellitus type 2. SURGICAL HISTORY : Hysterectomy. ENCOUNTER: Initial ACUITY: 1 day PAIN SCORE: 0/10 LOCATION: cranial TECHNIQUE: Multiplanar, multisequence MRI of the brain was performed without contrast. FINDINGS: CEREBRUM: The ventricles are normal for age. No evidence of midline shift, mass lesion, hemorrhage or acute in farction. No extraaxial fluid collections are seen. The pituitary gland and suprasellar cistern are normal in configuration. WHITE MATTER: Chronic white matter changes are noted bilaterally characteristic for ischemic demyelinization. POSTERIOR FOSSA: The cerebellum and brainstem are intact. The 4th ventricle is midline. The cerebellopontine angle is unremarkable. The cerebellar tonsils are normal in position. DIFFUSION IMAGING: No focal areas of restricted diffusion are seen. No evidence of acute infarction. EXTRACRANIAL: The visualized portions of the orbits and paranasal sinuses are unremarkable. CONCLUSION: 1. Chronic white matter changes are noted bilaterally. This is characteristic of ischemic demyeliniza tion. 2. No acute pathology. Kvng Brown MD on December 10, 2017 at 16:25 Board Certified Radiologist. This report was verified electronically.
--- NOTE | 2017-12-10 16:57 | RADRPT ---
EXAM DATE/TIME: 12/10/2017 16:03 [facility] COMPARISON: No previous studies available for comparison. INDICATIONS : Altered mental status. CONTRAST: 20 cc Omniscan (gadodiamide) IV MEDICAL HISTORY : Diabetes mellitus type 2. SURGICAL HISTORY : Hysterectomy. ENCOUNTER: Initial ACUITY: 1 day PAIN SCORE: 0/10 LOCATION: cranial Percent stenosis is calculated using the diameter of the stenotic region over the diameter of the nor mal distal internal carotid artery. TECHNIQUE: Bolus infused MRA of the extracranial circulation was performed using a neurovascular coil. Post pro cessing was performed including rotating subvolume maximum intensity projections of each carotid kevin ry, rotating full volume maximum intensity projections of both carotid arteries, sagittal and coronal sliding thin slab reformations of each carotid artery, and left oblique sliding thin slab reformatio n through the aortic arch to include the origin of the arch branch vessels. FINDINGS: AORTIC ARCH: There is a three vessel origin of the great vessels from the aorta. No evidence of ostial narrowing. There is some tortuosity involving the proximal left common carotid artery. There is some tortuosity involving the proximal right common carotid artery. RIGHT CAROTID: The common carotid artery is intact. The carotid bulb has a normal configuration without ulceration or narrowing. The internal carotid artery lumen is smooth without stenosis. The external carotid ar luiz is intact. There is tortuosity involving the right internal carotid artery. LEFT CAROTID: The common carotid artery is intact. The carotid bulb has a normal configuration without ulceration or narrowing. The internal carotid artery lumen is smooth without stenosis. The external carotid ar luiz is intact. VERTEBRALS: The vertebral arteries have a symmetric diameter. No stenotic lesions are seen. CONCLUSION: 1. There is some tortuosity involving the proximal portions of the right and left common carotid kevin joanne. 2. There is some tortuosity of the right internal carotid artery. 3. No focal high-grade or significant stenosis. Kvng Brown MD on December 10, 2017 at 16:53 Board Certified Radiologist. This report was verified electronically.
[2017-12-10] MEDS ORDERED: GADODIAMIDE PF 287 MG/ML 20 ML VIAL (for RAD MRI) IVCONTRAST ONE (17:01)
--- NOTE | 2017-12-10 18:31 | MB ---
cc: SILVIA FLORIAN M.D. DATE OF CONSULTATION: 12/10/2017 REASON FOR CONSULTATION: HISTORY OF PRESENT ILLNESS: The patient is a 67-year-old woman with history of being a bit confused on the night before last when she was playing games with friends and yesterday morning she was evidently confused, disoriented and brought to the hospital. CT brain was negative. On my review there was some questionable area of ischemia adjacent to the head of the caudate. Indeed this patient had lumbar puncture with some mild spinal fluid change but nondiagnostic. She remains confused. She did not take any blood thinner medications at home, though the son who is at the bedside is unable to give much more information. Apparently she is diabetic. The exam shows the patient to be asleep, awakens and then initially seems to neglect the right side, was looking for my hand with her left hand when I had to oil processing technician and only eventually she realized I was holding her right hand and then she was able to oil processing technician. She moves all four extremities but probably mildly weak on the right. There is slight right facial weakness. She is aphasic and has difficulty comprehending and expressing herself. She verbalized some words and phrases. She seemed to be in no distress. The neck was supple. Pupils were about the same size, reactive. The labs were reviewed. The spinal fluid showed 3 WBCs and 138 RBCs on tube #1 and tube #4 there were 14 WBCs and 79 RBCs. Glucose was 100, protein was 30.9. ASSESSMENT Probable left hemisphere ischemic stroke. PLAN: Start an aspirin. She is going to go for MRI in a short period of time and I am adding MRA head and neck. We will request an echocardiogram. She is in sinus rhythm. We will run a lipid profile. She has SCDs. Continue the supportive medical care. Thank you for asking us to assist in her care. Silvia Florian MD [facility] /2:53 PM /6:18 PM
[2017-12-10] MEDS: cefTRIAXone INJ 1,000 MG in SODIUM CHLORIDE 0.9% INJ 100 ML IV SCH (20:14)
[2017-12-11] VITALS (36 sets, daily range): BP systolic 128–176; BP diastolic 50–92; PULSE 63–84; RESP 19–48; TEMP 98.2–98.7; O2SAT 91–95
[2017-12-11] MEDS ORDERED: VANCOMYCIN 1,500 MG/NS 500 ML IV SCH ×2 (02:00)
[2017-12-11] MEDS: CHLORHEXIDINE GLUCONATE 2 % 1 PACK (2 CLOTHS)(taper/protocol) TOPICAL SCH (04:00)
[2017-12-11] MEDS: SODIUM CHLOR 0.9% 1000 ML INJ 1,000 ML IV SCH ×3 (04:15→17:21)
[2017-12-11] MEDS: DEXAMETHASONE SOD PHOS 4 MG/ML VIAL IV PUSH SCH ×3 (06:07→17:14)
[2017-12-11] MEDS: ACYCLOVIR INJ 700 MG in SODIUM CHLORIDE 0.9% INJ 100 ML IV SCH ×3 (06:07→21:59)
[2017-12-11] MEDS: ASPIRIN 325 MG TAB PO SCH (08:29)
[2017-12-11] MEDS: INSULIN NovoLIN REGULAR SUPPLEMENTAL SCALE SQ SCH ×4 (08:32→20:16)
[2017-12-11 09:57] LABS: CHOLESTEROL/ HDL RATIO 4.96 RATIO; HDL CHOLESTEROL 41.9 MG/DL (40.0-60.0)
[2017-12-11] MEDS ORDERED: PRAV40TA2 PO (10:12)
[2017-12-11] MEDS ORDERED: TRAZ50TA12 PO (10:15)
--- NOTE | 2017-12-11 13:25 | HHI.PR ---
Subjective Remarks Today patient looks much better she is awake alert oriented 3 no aphasia symptoms, no other focalization Her son and her friend were at the bedside He was able to answer question follow commands and make a conversation Neuro exam showed normal muscle strength Neurology ordered an MRI yesterday which showed white matter demyelinization mostly ischemic but no clear mention of acute stroke I ordered acyclovir and antibiotics for meningitis yesterday awaiting pending CSF, and consulted ID who kept Acyclovir, dexamethasone and Rocephin on board Objective Vitals Vital Signs Date Time Temp Pulse Resp B/P (MAP) Pulse Ox O2 Delivery O2 Flow Rate FiO2 12/11/17 11:00 66 28 165/81 (109) 94 12/11/17 10:00 74 12/11/17 10:00 68 19 171/88 (115) 93 12/11/17 09:00 74 25 156/77 (103) 94 12/11/17 08:01 98.6 76 21 155/67 (96) 93 12/11/17 08:00 94 Nasal Cannula 2.00 12/11/17 08:00 73 12/11/17 07:01 74 23 128/59 (82) 92 12/11/17 06:15 76 28 140/69 (92) 95 12/11/17 06:00 76 27 95 12/11/17 06:00 79 12/11/17 05:01 98.4 68 23 142/50 (80) 92 12/11/17 04:25 78 30 155/70 (98) 93 12/11/17 04:06 70 12/11/17 03:32 72 23 161/69 (99) 92 12/11/17 03:00 70 23 161/69 (99) 92 12/11/17 02:00 78 24 140/78 (98) 91 12/11/17 02:00 84 12/11/17 01:00 76 19 149/92 (111) 93 12/11/17 00:00 78 12/11/17 00:00 98.2 74 21 161/74 (103) 95 12/10/17 23:08 72 24 151/75 (100) 92 12/10/17 22:10 72 12/10/17 22:00 75 22 144/73 (96) 95 12/10/17 21:00 72 24 167/74 (105) 91 12/10/17 20:48 78 26 179/89 (119) 92 12/10/17 20:00 75 12/10/17 19:15 100.0 76 27 155/84 (107) 92 12/10/17 19:00 90 39 162/84 (110) 95 12/10/17 18:00 86 12/10/17 18:00 86 25 144/96 (112) 93 12/10/17 17:00 84 29 170/85 (113) 96 12/10/17 16:19 166/70 (102) 96 12/10/17 15:01 86 27 187/91 (123) 93 12/10/17 14:01 99.5 78 25 191/90 (123) 96 12/10/17 14:00 100 I/O 12/10/17 12/10/17 12/10/17 12/11/17 12/11/17 12/11/17 07:00 15:00 23:00 07:00 15:00 23:00 Intake Total 1250 ml 970 ml 940 ml 100 ml Output Total 400 ml 1925 ml 800 ml Balance 850 ml 970 ml -985 ml -700 ml Intake Oral 120 ml 120 ml IV Total 1250 ml 850 ml 820 ml 100 ml Output Urine Total 400 ml 1925 ml 800 ml Result Diagram: 12/10/1736 12/10/17735 Objective Remarks GENERAL: This is a well-nourished, well-developed patient, in no apparent distress. SKIN: No rashes, warm and dry HEAD: Atraumatic. Normocephalic. EYES: Pupils equal round and reactive. Extraocular motions intact. No scleral icterus. ENT: Nose without bleeding, or drainage, Airway patent. NECK: Trachea midline. Supple CARDIOVASCULAR: Regular rate and rhythm without murmurs, gallops, or rubs. RESPIRATORY: Fair air entry bilaterally. No wheezes, rales, or rhonchi. GASTROINTESTINAL: Abdomen soft, non-tender, nondistended. Positive bowel sounds MUSCULOSKELETAL: Extremities without clubbing, cyanosis, or edema. Pedal pulses appreciated NEUROLOGICAL: Cranial nerves II-12 intact awake alert oriented 3, sensation and motor strength within normal limit, normal speech no aphasia A/P Assessment and Plan Acute change in mental status with febrile illness suspicious of meningitis -Fever all night long, started on Rocephin, on 12/10 patient started on Vanco and ampicillin patient is above 51 years old, also added dexamethasone and acyclovir, consulted ID - previous CT head without contrast personally reviewed by me shows a small encephalomalacia consistent with stroke,Neurology consult appreciated, he ordered an MRI yesterday which showed white matter demyelinization mostly ischemic but no clear mention of acute stroke, therefore will start antihypertensive medication will lisinopril 5 mg twice a day and clonidine as needed I ordered acyclovir and antibiotics for meningitis yesterday awaiting pending CSF, and consulted ID who kept Acyclovir, dexamethasone and Rocephin on board -Initiating stroke protocol and permissive hypertension - fall precautions - RN swallow assessment with ST eval; PT and OT - 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
[2017-12-11] MEDS ORDERED: ENALAPRILAT 1.25 MG/ML VIAL IV PUSH PRN (15:45)
[2017-12-11] MEDS: VENLAFAXINE HCL XR 75 MG CAP PO SCH (16:05)
[2017-12-11] MEDS: LISINOPRIL 5 MG TAB PO SCH (20:06)
[2017-12-11] MEDS: cefTRIAXone INJ 1,000 MG in SODIUM CHLORIDE 0.9% INJ 100 ML IV SCH (20:07)
[2017-12-11] MEDS: PRAVASTATIN SOD 40 MG TAB PO SCH (20:07)
[2017-12-12] VITALS (29 sets, daily range): BP systolic 131–192; BP diastolic 57–93; PULSE 44–82; RESP 18–43; TEMP 96.3–98; O2SAT 91–97
[2017-12-12] MEDS: DEXAMETHASONE SOD PHOS 4 MG/ML VIAL IV PUSH SCH ×4 (00:36→16:48)
[2017-12-12] MEDS ORDERED: PHARMACY ORDERED LAB ONE (01:45)
[2017-12-12] MEDS: CHLORHEXIDINE GLUCONATE 2 % 1 PACK (2 CLOTHS)(taper/protocol) TOPICAL SCH (03:27)
[2017-12-12] MEDS: SODIUM CHLOR 0.9% 1000 ML INJ 1,000 ML IV SCH ×2 (04:15→12:05)
[2017-12-12] MEDS: ACYCLOVIR INJ 700 MG in SODIUM CHLORIDE 0.9% INJ 100 ML IV SCH ×3 (06:02→22:04)
[2017-12-12] MEDS: VENLAFAXINE HCL XR 75 MG CAP PO SCH (07:47)
[2017-12-12] MEDS: ASPIRIN 325 MG TAB PO SCH (07:47)
[2017-12-12] MEDS: LISINOPRIL 5 MG TAB PO SCH ×2 (07:47→22:03)
[2017-12-12] MEDS: INSULIN NovoLIN REGULAR SUPPLEMENTAL SCALE SQ SCH ×4 (07:48→22:16)
--- NOTE | 2017-12-12 08:51 | HHI.PR ---
Review/Management Daily Summary 12/12 MR brain MRA head and neck all ok pending echo normal exam this am possibly d/c from neuro standpoint Subjective Subjective Comments No acute events reported No headache Active Medications Current Medications Medications (Trade) Dose Ordered Sig/Tito Route Start Time Stop Time Status Last Admin (NS Flush) 2 ml UNSCH PRN IV FLUSH 12/09/17 13:45 (D50w (Vial) Inj) 50 ml UNSCH PRN IV PUSH 12/09/17 18:30 (Glucagon Inj) 1 mg UNSCH PRN OTHER 12/09/17 18:30 (NovoLIN R SUPPLEMENTAL SCALE) 1 ACHS SLIDING SCALE SQ 12/09/17 21:00 12/12/17 07:48 (Phenergan) 25 mg Q6H PRN PO 12/09/17 18:30 (Ultram) 50 mg Q6H PRN PO 12/09/17 18:30 12/11/17 20:19 (Ativan) 1 mg Q8H PRN PO 12/09/17 18:30 Ceftriaxone Sodium 1000 mg/ Sodium Chloride 100 ml @ 200 mls/hr Q24H IV 12/09/17 21:00 12/11/17 20:07 Sodium Chloride 1,000 ml @ 125 mls/hr Q8H IV 12/09/17 20:15 12/12/17 04:15 (Tylenol Supp) 650 mg Q4H PRN RECTAL 12/09/17 22:15 12/10/17 07:22 Miscellaneous Information Patient in critical care unit? Ass... [id number] .XX 12/09/17 23:30 (Chlorhexidine 2% Cloth) 3 pack DAILY@04 TOPICAL 12/10/17 04:00 12/14/17 04:01 12/12/17 03:27 (Chlorhexidine 2% Cloth) 3 pack UNSCH PRN TOPICAL 12/09/17 23:30 12/14/17 23:23 (Decadron Inj) 4 mg Q6HR IV PUSH 12/10/17 12:00 12/12/17 06:08 Acyclovir Sodium 700 mg/Sodium Chloride 100 ml @ 100 mls/hr Q8H IV 12/10/17 14:00 12/12/17 06:02 (Aspirin) 325 mg DAILY PO 12/11/17 09:00 12/12/17 07:47 (Pravachol) 40 mg HS PO 12/11/17 21:00 12/11/17 20:07 (Effexor Xr) 75 mg DAILY PO 12/11/17 15:00 12/12/17 07:47 (Prinivil) 5 mg Q12HR PO 12/11/17 21:00 12/12/17 07:47 (Vasotec Inj) 1.25 mg Q6H PRN IV PUSH 12/11/17 15:45 Allergies Allergies Coded Allergies No Known Allergies (Unverified12/09/17) Exam I&O / VS Vital Signs Date Time Temp Pulse Resp B/P (MAP) Pulse Ox O2 Delivery O2 Flow Rate FiO2 12/12/17 07:47 96 Nasal Cannula 1.00 12/12/17 06:02 66 12/12/17 06:00 97.4 66 22 167/76 (106) 97 12/12/17 05:30 48 20 146/62 (90) 96 12/12/17 05:00 48 25 168/73 (104) 95 12/12/17 04:30 50 27 156/60 (92) 95 12/12/17 04:00 58 25 143/66 (91) 94 12/12/17 04:00 52 12/12/17 03:30 56 38 152/75 (100) 95 12/12/17 03:00 58 29 155/76 (102) 94 12/12/17 02:30 52 43 144/68 (93) 93 12/12/17 02:00 52 40 141/70 (93) 94 12/12/17 02:00 58 12/12/17 01:30 56 36 137/65 (89) 94 12/12/17 01:00 64 34 131/57 (81) 94 12/12/17 00:21 60 12/12/17 00:00 78 21 137/59 (85) 94 12/11/17 23:30 98.3 64 27 136/64 (88) 93 12/11/17 23:00 66 30 150/81 (104) 93 12/11/17 22:30 93 Nasal Cannula 2.00 12/11/17 22:30 68 37 149/79 (102) 92 12/11/17 22:00 64 46 160/79 (106) 92 2/25/18 22:00 63 12/11/17 21:30 66 35 155/69 (97) 93 12/11/17 21:19 18 12/11/17 21:00 74 26 144/83 (103) 91 12/11/17 20:33 66 12/11/17 20:31 78 37 161/76 (104) 94 12/11/17 20:00 94 21 12/11/17 20:00 74 37 154/69 (97) 92 12/11/17 19:00 98.7 74 47 151/62 (91) 12/11/17 18:00 68 28 138/59 (85) 12/11/17 18:00 68 12/11/17 17:30 82 48 166/78 (107) 12/11/17 17:00 74 37 169/72 (104) 12/11/17 16:15 98.3 74 32 166/77 (106) 12/11/17 16:00 78 12/11/17 15:15 72 42 153/69 (97) 12/11/17 15:00 76 176/82 (113) 12/11/17 14:00 70 12/11/17 14:00 70 31 169/91 (117) 94 12/11/17 13:00 72 27 168/78 (108) 95 12/11/17 12:00 98.2 68 25 163/70 (101) 94 12/11/17 12:00 68 12/11/17 11:00 66 28 165/81 (109) 94 12/11/17 10:00 74 12/11/17 10:00 68 19 171/88 (115) 93 12/11/17 09:00 74 25 156/77 (103) 94 Objective Micro and Labs Date/Time Source Procedure Growth Status 12/09/17 20:32 Blood Peripheral Aerobic Blood Culture - Preliminary NO GROWTH IN 2 DAYS Resulted 12/09/17 20:32 Blood Peripheral Anaerobic Blood Culture - Preliminary NO GROWTH IN 2 DAYS Resulted 12/09/17 18:43 Cerebral Spinal Fluid Lumbar Puncture Gram Stain - Final Resulted 12/09/17 18:43 Cerebral Spinal Fluid Lumbar Puncture CSF Culture - Preliminary NO GROWTH IN 48 HOURS. Resulted 12/09/17 13:45 Urine Catheterized Urine Urine Culture - Final Escherichia Coli Complete Jez Florian MD Dec 12, 2017 08:51
--- NOTE | 2017-12-12 09:23 | MB ---
cc: SAMI PORTER MD,ROBLES KNOWLES DATE OF CONSULTATION 12/10/2017 REASON FOR CONSULTATION Change in mental status with fever, suspect meningitis. HISTORY OF PRESENT ILLNESS This is a 67-year-old female who presented to the emergency department at [facility] on 12/09/2017 with altered mental status. The patient was noted to have been normal the night before presenting to the emergency department. She was complaining of a mild headache. The patient was noted to be very confused the following morning and was having difficulty recalling simple information. She could not recall her son's phone number or the pass code to another phone and was noted to have been vomiting. She presented to the emergency department here and she had a low grade fever of 99.1 and her heart rate was elevated. The white blood cell count was normal. She underwent a lumbar puncture and the spinal fluid revealed 3 white cells and 150 red cells, 70% lymphocytes and 26% neutrophils. The cell count in the fourth tube revealed 79 red cells and 14 white cells, 79% lymphocytes. The glucose was 100 and protein 30.9. Studies were sent for viral testing for HSV. 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 No acute pathology was noted. The spinal fluid has no growth in 24 hours. The Gram stain showed a few white cells and no organisms. Blood cultures were taken and have no growth. A urine culture has gram-negative debi. The urinalysis which was taken on 12/09/2017 showed 6-8 red cells. The patient is currently lying in bed, in no acute distress, but very confused. She appears a little restless. She keeps telling me "I'm okay" even without asking a question. She is oriented only to self. She is not oriented to place or time and does not recall her date of . When asked whether she has a headache she says "yes" and then is saying "I'm okay." I asked her whether she has difficulty with light bothering her eyes and she said "I'm okay" but when the light was turned on she quickly closed her eyes and put her hand over to shield her eyes from the light. Her neck is supple. It is difficult to get any meaningful information from the patient and therefore information is obtained from the medical record. She is able to bend her neck forward to touch her chest with her chin. She is also able to move her head from [id number] without difficulty. The patient had an elevated temperature of 102 on the evening of admission and subsequently she had 101 degrees the following day. Her white blood cell count also increased to 12.1 from 10.3 today. PAST MEDICAL HISTORY Diabetes mellitus. ALLERGIES No known drug allergies. MEDICATIONS 1. Acyclovir. 2. Ampicillin/sulbactam. 3. Vancomycin. 4. Aspirin. 5. Ceftriaxone. 6. Insulin. SOCIAL HISTORY No tobacco, alcohol or illicit drugs per the medical record. FAMILY HISTORY Unable to obtain. REVIEW OF SYSTEMS Unable to obtain because of the patient's mental status. PHYSICAL EXAMINATION GENERAL: This is a moderately obese female who is in no acute distress but she appears somewhat restless. VITAL SIGNS: Temperature 100 degrees, blood pressure 155/84, respirations 28, heart rate 76. HEENT: The head is atraumatic. Extraocular movements appears grossly intact. Pupils are reactive to light. No icterus. Oropharynx with moist mucosa. No visible lesions. NECK: Supple. No swelling. No adenopathy. LUNGS: Clear breath sounds bilaterally. HEART: Regular, S1 and S2, no murmurs. ABDOMEN: Obese, soft. No tenderness appreciated. RECTAL: Not performed. EXTREMITIES: No clubbing, cyanosis or edema. SKIN: No rash. NEUROLOGIC: Unable to fully assess. PSYCH: Unable to fully assess. LABORATORY WBC 12.1, platelets 255, 71% neutrophils, 18% lymphocytes, hemoglobin 13.5. Creatinine 0.61, BUN 8, sodium 134. Liver function tests normal. IMPRESSION Acute change in mental status in patient who presented with a headache, fever and elevated white blood cell count. Cerebrospinal fluid testing is not diagnostic for bacterial infection. Viral testing for HSV is pending. Potentially she could have a viral infection. MRI of the brain reveals chronic white matter changes characteristic of ischemic demyelinization. Potentially there could be a non-infectious cause to the altered mental status; however, this appeared very acutely and one would be concerned about an infection versus CVA. Because of the fever and elevated white blood cell count we also need to entertain the possibility of infectious endocarditis and urinary tract infection likely unrelated to the altered mental status. RECOMMENDATIONS 1. Discontinue ampicillin. 2. Discontinue vancomycin. 3. Continue acyclovir. 4. Continue ceftriaxone. 5. Monitor 2-D echocardiogram. 6. Monitor spinal fluid testing until completion and follow the HSV testing on the cerebrospinal fluid. 7. Monitor the urine culture for sensitivity and identity of gram-negative debi. 8. Adjustment of antibiotics or additional antibiotics to be made pending on results. Thank you for this consultation. The patient's progress will be monitored and further recommendations will be given upon follow-up if necessary. Sami Porter MD FD/RISA /8:15 PM /8:41 AM
--- NOTE | 2017-12-12 14:35 | HHI.PR ---
Subjective Remarks 67-year-old white female being admitted for encephalopathy, possible undiagnosed intracranial hx. history is limited as the patient is not a great historian likely from her current medical condition. Son and [id number] at bedside. Patient was in her usual state of health until sometime yesterday evening when she was playing a game and was noted to be intermittently spacing out. Later this morning her neighbors found the patient to be having a headache associated with some vomiting. They noticed that she was very confused and thus prompted her to seek medical attention. There are no reports of any falls or head trauma. Per the son, the patient has no substantial medical history except DM. There are no reports of any intracranial processes including tumors or strokes in the patient. FH: Report of a CVA in the family. Social hx entails that the patient lives by herself and there is no smoking hx. 12-10 Patient sleeping in bed, woke up to voice, she only was oriented to person she recognized her son, but otherwise she was confused and noncoherent Discussed with the son, patient has been running fever all night long max 102.4 , she was started on Rocephin, I will add vancomycin and ampicillin for bacterial meningitis coverage awaiting for the full results of CSF, also will add acyclovir, and I will consult ID, awaiting neurology consultation, MRI has not been done yet, awaiting senior radiation protection technician to come from [facility] for an MRI 12-11 Today patient looks much better she is awake alert oriented 3 no aphasia symptoms, no other focalization Her son and her friend were at the bedside He was able to answer question follow commands and make a conversation Neuro exam showed normal muscle strength Neurology ordered an MRI yesterday which showed white matter demyelinization mostly ischemic but no clear mention of acute stroke I ordered acyclovir and antibiotics for meningitis yesterday awaiting pending CSF, and consulted ID who kept Acyclovir, dexamethasone and Rocephin on board 12-12 she was much more alert today. HAS already had an echocardiogram. Working with speech therapy.. Working with physical therapy. He is much improved from yesterday UTI came back positive for Escherichia coli on Rocephin and acyclovir currently Increase activity Transfer out of ICU A.m. labs Case management consult Objective Vitals Vital Signs Date Time Temp Pulse Resp B/P (MAP) Pulse Ox O2 Delivery O2 Flow Rate FiO2 12/12/17 14:00 58 12/12/17 14:00 60 27 149/59 (89) 93 12/12/17 13:00 74 26 150/72 (98) 93 12/12/17 12:00 97.6 82 40 167/86 (113) 93 12/12/17 12:00 60 12/12/17 11:00 60 35 148/88 (108) 94 12/12/17 10:00 80 12/12/17 10:00 80 41 92 12/12/17 09:00 56 29 153/73 (99) 91 12/12/17 08:00 56 12/12/17 08:00 98.0 56 25 152/88 (109) 96 12/12/17 08:00 56 25 152/88 (109) 96 12/12/17 07:47 96 Nasal Cannula 1.00 12/12/17 07:00 44 12/12/17 07:00 44 18 140/68 (92) 95 12/12/17 06:02 66 12/12/17 06:00 97.4 66 22 167/76 (106) 97 12/12/17 05:30 48 20 146/62 (90) 96 12/12/17 05:00 48 25 168/73 (104) 95 12/12/17 04:30 50 27 156/60 (92) 95 12/12/17 04:00 58 25 143/66 (91) 94 12/12/17 04:00 52 12/12/17 03:30 56 38 152/75 (100) 95 12/12/17 03:00 58 29 155/76 (102) 94 12/12/17 02:30 52 43 144/68 (93) 93 12/12/17 02:00 52 40 141/70 (93) 94 12/12/17 02:00 58 12/12/17 01:30 56 36 137/65 (89) 94 12/12/17 01:00 64 34 131/57 (81) 94 12/12/17 00:21 60 12/12/17 00:00 78 21 137/59 (85) 94 12/11/17 23:30 98.3 64 27 136/64 (88) 93 12/11/17 23:00 66 30 150/81 (104) 93 12/11/17 22:30 93 Nasal Cannula 2.00 12/11/17 22:30 68 37 149/79 (102) 92 12/11/17 22:00 64 46 160/79 (106) 92 12/11/17 22:00 63 12/11/17 21:30 66 35 155/69 (97) 93 12/11/17 21:19 18 12/11/17 21:00 74 26 144/83 (103) 91 12/11/17 20:33 66 12/11/17 20:31 78 37 161/76 (104) 94 12/11/17 20:00 94 21 12/11/17 20:00 74 37 154/69 (97) 92 12/11/17 19:00 98.7 74 47 151/62 (91) 12/11/17 18:00 68 28 138/59 (85) 12/11/17 18:00 68 12/11/17 17:30 82 48 166/78 (107) 12/11/17 17:00 74 37 169/72 (104) 12/11/17 16:15 98.3 74 32 166/77 (106) 12/11/17 16:00 78 12/11/17 15:15 72 42 153/69 (97) 12/11/17 15:00 76 176/82 (113) I/O 12/11/17 12/11/17 12/11/17 12/12/17 12/12/17 12/12/17 07:00 15:00 23:00 07:00 15:00 23:00 Intake Total 100 ml 1820 ml Output Total 800 ml 900 ml 625 ml Balance -700 ml 920 ml -625 ml Intake Oral 720 ml IV Total 100 ml 1100 ml Output Urine Total 800 ml 900 ml 625 ml # Bowel Movements 0 Result Diagram: 12/10/17 0736 12/10/17 0736 Other Results Laboratory Tests Test 12/09/17 18:43 12/09/17 20:32 12/09/17 23:34 12/10/17 07:36 CSF Volume (Tube 1) 1.3 ML CSF Supernatant Color (tube 1) CLEAR CSF Gross Blood (Tube 1) TRACE CSF WBC (Tube 1) 3 /MM3 CSF RBC (Tube 1) 138 /MM3 CSF Volume (Tube 2) 4.8 ML CSF Supernatant Color (tube 2) CLEAR CSF Gross Blood (Tube 2) TRACE CSF Volume (Tube 3) 2.8 ML CSF Supernatant Color (tube 3) CLEAR CSF Gross Blood (Tube 3) TRACE CSF Volume (Tube 4) 2.0 ML CSF Supernatant Color (tube 4) CLEAR CSF Gross Blood (Tube 4) TRACE CSF WBC (Tube 4) 14 /MM3 CSF RBC (Tube 4) 79 /MM3 CSF Neutrophils 14 % CSF Lymphocytes 79 % CSF Histiocytes 7 % CSF Glucose 100 MG/DL CSF Total Protein 30.9 MG/DL Lactic Acid Level 2.1 mmol/L 1.3 mmol/L Nasal Screen MRSA (PCR) MRSA NOT DETECTED White Blood Count 12.1 TH/MM3 Red Blood Count 4.38 MIL/MM3 Hemoglobin 13.5 GM/DL Hematocrit 39.4 % Mean Corpuscular Volume 90.0 FL Mean Corpuscular Hemoglobin 31.0 PG Mean Corpuscular Hemoglobin Concent 34.4 % Red Cell Distribution Width 12.2 % Platelet Count 255 TH/MM3 Mean Platelet Volume 8.3 FL Neutrophils (%) (Auto) 71.4 % Lymphocytes (%) (Auto) 18.4 % Monocytes (%) (Auto) 7.2 % Eosinophils (%) (Auto) 0.1 % Basophils (%) (Auto) 2.9 % Neutrophils # (Auto) 8.6 TH/MM3 Lymphocytes # (Auto) 2.2 TH/MM3 Monocytes # (Auto) 0.9 TH/MM3 Eosinophils # (Auto) 0.0 TH/MM3 Basophils # (Auto) 0.4 TH/MM3 CBC Comment DIFF FINAL Differential Comment Blood Urea Nitrogen 8 MG/DL Creatinine 0.61 MG/DL Random Glucose 194 MG/DL Calcium Level 8.4 MG/DL Sodium Level 134 MEQ/L Potassium Level 3.5 MEQ/L Chloride Level 100 MEQ/L Carbon Dioxide Level 25.7 MEQ/L Anion Gap 8 MEQ/L Estimat Glomerular Filtration Rate 98 ML/MIN Test 12/11/17 06:07 Triglycerides Level 175 MG/DL Cholesterol Level 208 MG/DL LDL Cholesterol 131 MG/DL HDL Cholesterol 41.9 MG/DL Cholesterol/HDL Ratio 4.96 RATIO Imaging Last Impressions Brain MRI 12/10/17 0600 Signed Impressions: Service Date/Time: Sunday, December 10, 2017 15:30 - CONCLUSION: 1. Chronic white matter changes are noted bilaterally. This is characteristic of ischemic demyelinization. 2. No acute pathology. Kvng Brown MD Neck Magnetic Resonance Angiography 12/10/17 0000 Signed Impressions: Service Date/Time: Sunday, December 10, 2017 16:03 - CONCLUSION: 1. There is some tortuosity involving the proximal portions of the right and left common carotid arteries. 2. There is some tortuosity of the right internal carotid artery. 3. No focal high-grade or significant stenosis. Kvng Brown MD Head Magnetic Resonance Angiography 12/10/17 0000 Signed Impressions: Service Date/Time: Sunday, December 10, 2017 15:30 - CONCLUSION: No acute intracranial vascular abnormality is identified. Jc Wilhelm MD Head CT 12/09/17 1331 Signed Impressions: Service Date/Time: Saturday, December 09, 2017 13:54 - CONCLUSION: 1. 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 2. No acute intracranial abnormality is identified. Severino Fabian MD Lumbar Puncture Fluoroscopy 12/09/17 0000 Signed Impressions: Service Date/Time: Saturday, December 09, 2017 18:30 - CONCLUSION: Uncomplicated fluoroscopically guided lumbar puncture. Jc Marc MD Chest X-Ray 12/09/17 0000 Signed Impressions: Service Date/Time: Saturday, December 09, 2017 18:16 - CONCLUSION: 1. No acute cardiopulmonary disease. Ej Rivas MD Objective Remarks GENERAL: Awake alert and oriented 3 talkative and cooperative SKIN: Warm and dry. HEAD: Atraumatic. Normocephalic. EYES: Pupils equal and round. No scleral icterus. No injection or drainage. Extraocular muscles intact ENT: No nasal bleeding or discharge. Mucous membranes pink and moist. Tongue is midline NECK: Trachea midline. No JVD. Supple CARDIOVASCULAR: Regular rate and rhythm. S1 and S2 no S3 or S4 RESPIRATORY: No accessory muscle use. Clear to auscultation. Breath sounds equal bilaterally. GASTROINTESTINAL: Abdomen soft, non-tender, nondistended. Hepatic and splenic margins not palpable. MUSCULOSKELETAL: Extremities without clubbing, cyanosis, or edema. No obvious deformities. NEUROLOGICAL: Awake and alert. No obvious cranial nerve deficits. Motor grossly within normal limits. 4 out of 5 muscle strength in the arms and legs. Normal speech. PSYCHIATRIC: Appropriate mood and affect; insight and judgment normal. Procedures RAD Post Procedure Prog Note Post Procedure Progress Note Pre Procedure Diagnosis: (1) Altered mental status Post Procedure Diagnosis: (1) Altered mental status Procedure Date: Dec 09, 2017 Supervising Radiologist: Jc Marc Proceduralist/Assist: Marguerite Centeno, RT(R)(), Viktor Brown, RT(R) Anesthesia: Local Plan of Activity Patient to Unit: Nursing Unit Patient Condition: Fair See PACS Report for procedural detail/treatment Vascular-Arterial Rad Proc Vascular-Arterial Procedure Vascular-Venous Rad Proc Vascular-Venous Procedure Radiology Drainage Drainage Procedure Feeding Tube Imaging Evaluation Imaging Evaluation Spinal Radiology Procedures Spinal Procedure Lumbar Puncture L3-L4 Fluid Removal (CCs): 12 Fluid Description: Clear Puncture Time: 18:45 Medications and IVs Current Medications Sodium Chloride (NS Flush) 2 ml UNSCH PRN IV FLUSH FLUSH AFTER USING IV ACCESS ; Start 12/09/17 at 13:45 Diphenhydramine HCl (Benadryl Inj) 25 mg ONCE ONCE IV PUSH Last administered on 12/09/17at 14:47; Start 12/09/17 at 14:30; Stop 12/09/17 at 14:31; Status DC Prochlorperazine Edisylate (Compazine Inj) 10 mg ONCE ONCE IV PUSH Last administered on 12/09/17at 14:47; Start 12/09/17 at 14:30; Stop 12/09/17 at 14:31 ; Status DC Dextrose (D50w (Vial) Inj) 50 ml UNSCH PRN IV PUSH HYPOGLYCEMIA-SEE COMMENTS; Start 12/09/17 at 18:30 Glucagon (Glucagon Inj) 1 mg UNSCH PRN OTHER HYPOGLYCEMIA-SEE COMMENTS; Start 12/09/17 at 18:30 Insulin Human Regular (NovoLIN R SUPPLEMENTAL SCALE) 1 ACHS SLIDING SCALE SQ Last administered on 12/12/17at 12:00; Start 12/09/17 at 21:00 Promethazine HCl (Phenergan) 25 mg Q6H PRN PO NAUSEA OR VOMITING; Start at 18:30 Tramadol HCl (Ultram) 50 mg Q6H PRN PO PAIN Last administered on 12/11/17at 20: 19; Start 12/09/17 at 18:30 Lorazepam (Ativan) 1 mg Q8H PRN PO anxiety/agitation; Start 12/09/17 at 18:30 Ceftriaxone Sodium 1000 mg/ Sodium Chloride 100 ml @ 200 mls/hr Q24H IV Last administered on 12/11/17at 20:07; Start 12/09/17 at 21:00 Sodium Chloride 1,000 ml @ 125 mls/hr Q8H IV Last administered on 12/12/17at 12 :05; Start 12/09/17 at 20:15 Acetaminophen (Tylenol Supp) 650 mg Q4H PRN RECTAL fever > 100.4 Last administered on 12/10/17at 07:22; Start 12/09/17 at 22:15 Acetaminophen (Tylenol Supp) 650 mg ONCE ONCE RECTAL Last administered on 12/09at 22:11; Start 12/09/17 at 22:15; Stop 12/09/17 at 22:16; Status DC Miscellaneous Information Patient in critical care unit? Ass... Q361D .XX ; Start 12/09/17 at 23:30 Chlorhexidine Gluconate (Chlorhexidine 2% Cloth) 3 pack DAILY@04 TOPICAL Last administered on 12/12/17at 03:27; Start 12/10/17 at 04:00; Stop 12/14/17 at 04:01 Chlorhexidine Gluconate (Chlorhexidine 2% Cloth) 3 pack UNSCH PRN TOPICAL HYGIENIC CARE; Start 12/09/17 at 23:30; Stop 12/14/17 at 23:23 Dexamethasone Sodium Phosphate (Decadron Inj) 4 mg Q6HR IV PUSH Last administered on 12/12/17at 12:03; Start 12/10/17 at 12:00 Acyclovir Sodium 700 mg/Sodium Chloride 100 ml @ 100 mls/hr Q8H IV Last administered on 12/12/17at 12:08; Start 12/10/17 at 14:00 Ampicillin Sodium 1000 mg/Sodium Chloride 100 ml @ 400 mls/hr Q4H IV Last administered on 12/10/17at 18:47; Start 12/10/17 at 14:00; Stop 12/10/17 at 20:32 ; Status DC Pharmacy Profile Note 0 ml @ 0 mls/hr UNSCH OTHER ; Start 12/10/17 at 12:30; Stop 12/10/17 at 20:32; Status DC Vancomycin HCl 2000 mg/Sodium Chloride 520 ml @ 257.5 mls/ hr ONCE ONCE IV Last administered on 12/10/17at 16:27; Start 12/10/17 at 14:00; Stop 12/10/17 at 16:01; Status DC Vancomycin HCl 1500 mg/Sodium Chloride 515 ml @ 257.5 mls/ hr Q12H IV ; Start 12/11/17 at 02:00; Stop 12/11/17 at 02:00; Status DC Miscellaneous Information SPECIFIC LAB TO BE ... ONCE ONCE .XX ; Start 12/12 at 01:45; Stop 12/12/17 at 01:46; Status Cancel Aspirin (Aspirin) 325 mg NOW ONCE PO Last administered on 12/10/17at 16:31; Start 12/10/17 at 15:30; Stop 12/10/17 at 15:31; Status DC Aspirin (Aspirin) 325 mg DAILY PO Last administered on 12/12/17at 07:47; Start 12/11/17 at 09:00 Gadodiamide (Omniscan Pf Inj) 20 ml STK-MED ONCE IVCONTRAST Last administered on 12/10/17at 17:01; Start 12/10/17 at 17:01; Stop 12/10/17 at 17:02; Status DC Pravastatin Sodium (Pravachol) 40 mg HS PO Last administered on 12/11/17at 20:07 ; Start 12/11/17 at 21:00 Venlafaxine HCl (Effexor Xr) 75 mg DAILY PO Last administered on 12/12/17at 07: 47; Start 12/11/17 at 15:00 Lisinopril (Prinivil) 5 mg Q12HR PO Last administered on 12/12/17at 07:47; Start 12/11/17 at 21:00 Enalaprilat (Vasotec Inj) 1.25 mg Q6H PRN IV PUSH bp>160/90; Start 12/11/17 at 15:45 A/P Assessment and Plan Acute change in mental status with febrile illness suspicious of meningitis -Fever all night long, started on Rocephin, on 12/10 patient started on Vanco and ampicillin patient is above 50 years old, also added dexamethasone and acyclovir, consulted ID - previous CT head without contrast personally reviewed by me shows a small encephalomalacia consistent with stroke,Neurology consult appreciated, he ordered an MRI yesterday which showed white matter demyelinization mostly ischemic but no clear mention of acute stroke, therefore will start antihypertensive medication will lisinopril 5 mg twice a day and clonidine as needed I ordered acyclovir and antibiotics for meningitis yesterday awaiting pending CSF, and consulted ID who kept Acyclovir, dexamethasone and Rocephin on board -Initiating stroke protocol and permissive hypertension - fall precautions - RN swallow assessment with ST eval; PT and OT passed swallow evaluation - hold any SUGAR CANE GROWER depressing meds No more fevers Much improved from yesterday Hypoxemia and fever who was running yesterday 12/10 has resolved today 12/11, in light of fever suspicious for pneumonia however chest x-ray is negative, will monitor consider repeat x-ray or go for CT without contrast N/V - see above, unlikely abd etiology, CMP neg, phenergan as needed anxiety - holding home clonopin, only po ativan as needed SCDs, no heparin for now given need to r/o bleed Can transfer out of ICU Hep-Lock IV Discussed with RN and patient Discharge Planning Continue to work with physical therapy and occupational therapy passing speech therapy evaluation discharge in the next 24-48 hour Junior Alex DO Dec 12, 2017 14:35
--- NOTE | 2017-12-12 15:40 | ECHRPT ---
Indication: stroke CONCLUSIONS The left ventricular systolic function is normal with an estimated ejection fraction in the range of 60-65%. Trace mitral valve regurgitation. BP: / HR: Rhythm: MEASUREMENTS (Male / Female) Normal Values Technical Quality:Good 2D ECHO LV Diastolic Diameter PLAX 4.3 cm 4.2 - 5.9 / 3.9 - 5.3 cm LV Systolic Diameter PLAX 3.1 cm IVS Diastolic Thickness 1.7 cm 0.6 - 1.0 / 0.6 - 0.9 cm LVPW Diastolic Thickness 0.9 cm 0.6 - 1.0 / 0.6 - 0.9 cm LV Relative Wall Thickness 0.6 RV Internal Dim ED PLAX 2.2 cm M-MODE Aortic Root Diameter MM 2.8 cm LA Systolic Diameter MM 4.2 cm LA Ao Ratio MM 1.5 AV Cusp Separation MM 1.8 cm DOPPLER Mitral E Point Velocity 65.6 cm/s Mitral A Point Velocity 57.3 cm/s Mitral E to A Ratio 1.1 LV E' Lateral Velocity 11.3 cm/s Mitral E to LV E' Lateral Ratio 5.8 LV E' Septal Velocity 8.4 cm/s Mitral E to LV E' Septal Ratio 7.8 FINDINGS LEFT VENTRICLE Normal left ventricular size. The left ventricular systolic function is normal with an estimated ejection fraction in the range of 60-65%. There was limited left ventricular wall motion assessment due to poor endocardial visualization. Nonobstructive prominent basal hypertrophy is present consistent with sigmoid septum. RIGHT VENTRICLE Normal right ventricular size LEFT ATRIUM The left atrial size is mildly dilated. RIGHT ATRIUM The right atrial size is normal. ATRIAL SEPTUM Normal atrial septal thickness AORTA The aortic root and proximal ascending aorta are normal in size on limited imaging. MITRAL VALVE Structurally normal mitral valve. Trace mitral valve regurgitation. No mitral valve stenosis. AORTIC VALVE Grossly normal aortic valve. No aortic valve stenosis or regurgitation. TRICUSPID VALVE Structurally normal tricuspid valve. No tricuspid valve stenosis or regurgitation. PULMONARY VALVE The pulmonary valve is not well visualized. VESSELS The inferior vena cava is normal in size. PERICARDIUM No pericardial effusion. Keon Crooks DO (Electronically Signed) Final Date:12 December 2017 15:39
--- NOTE | 2017-12-12 18:40 | HHI.IDPN ---
Note Infectious Disease Note Patient is very alert. today. Oriented x 3. Denies LASSITER. Afebrile. No dizziness or neck pain. HSV PCR pending. Notes history of vaginal herpetic lesions. 67-year-old female who presented to the emergency department at [facility] on 12/09/2017 with altered mental status. The patient was noted to have been normal the night before presenting to the emergency department. She was complaining of a mild headache. The patient was noted to be very confused the following morning and was having difficulty recalling simple information. She could not recall her son's phone number or the pass code to another phone and was noted to have been vomiting. She presented to the emergency department here and she had a low grade fever of 99.1 and her heart rate was elevated. The white blood cell count was normal. The patient had an elevated temperature of 102 on the evening of admission and subsequently she had 101 degrees the following day. Her white blood cell count also increased to 12.1 from 10.3 today. PAST MEDICAL HISTORY Diabetes mellitus. ALLERGIES No known drug allergies. MEDICATIONS 1. Acyclovir. 2. Ceftriaxone. OBJECTIVE: Vital Signs Date Time Temp Pulse Resp B/P (MAP) Pulse Ox O2 Delivery O2 Flow Rate FiO2 12/12/17 17:32 96.3 64 20 171/76 (107) 96 12/12/17 16:00 97.9 66 31 150/71 (97) 93 12/12/17 15:00 66 31 150/71 (97) 93 12/12/17 14:00 58 12/12/17 14:00 60 27 149/59 (89) 93 12/12/17 13:00 74 26 150/72 (98) 93 12/12/17 12:00 97.6 82 40 167/86 (113) 93 12/12/17 12:00 60 12/12/17 11:00 60 35 148/88 (108) 94 12/12/17 10:00 80 12/12/17 10:00 80 41 92 12/12/17 09:00 56 29 153/73 (99) 91 12/12/17 08:00 56 12/12/17 08:00 98.0 56 25 152/88 (109) 96 12/12/17 08:00 56 25 152/88 (109) 96 12/12/17 07:47 96 Nasal Cannula 1.00 12/12/17 07:00 44 12/12/17 07:00 44 18 140/68 (92) 95 12/12/17 06:02 66 12/12/17 06:00 97.4 66 22 167/76 (106) 97 12/12/17 05:30 48 20 146/62 (90) 96 12/12/17 05:00 48 25 168/73 (104) 95 12/12/17 04:30 50 27 156/60 (92) 95 12/12/17 04:00 58 25 143/66 (91) 94 12/12/17 04:00 52 12/12/17 03:30 56 38 152/75 (100) 95 12/12/17 03:00 58 29 155/76 (102) 94 12/12/17 02:30 52 43 144/68 (93) 93 12/12/17 02:00 52 40 141/70 (93) 94 12/12/17 02:00 58 12/12/17 01:30 56 36 137/65 (89) 94 12/12/17 01:00 64 34 131/57 (81) 94 12/12/17 00:21 60 12/12/17 00:00 78 21 137/59 (85) 94 12/11/17 23:30 98.3 64 27 136/64 (88) 93 12/11/17 23:00 66 30 150/81 (104) 93 12/11/17 22:30 93 Nasal Cannula 2.00 12/11/17 22:30 68 37 149/79 (102) 92 12/11/17 22:00 64 46 160/79 (106) 92 12/11/17 22:00 63 12/11/17 21:30 66 35 155/69 (97) 93 12/11/17 21:19 18 12/11/17 21:00 74 26 144/83 (103) 91 12/11/17 20:33 66 12/11/17 20:31 78 37 161/76 (104) 94 12/11/17 20:00 94 21 12/11/17 20:00 74 37 154/69 (97) 92 12/11/17 19:00 98.7 74 47 151/62 (91) Laboratory Tests Test 12/11/17 06:07 Triglycerides Level 175 MG/DL Cholesterol Level 208 MG/DL LDL Cholesterol 131 MG/DL HDL Cholesterol 41.9 MG/DL Cholesterol/HDL Ratio 4.96 RATIO Microbiology Date/Time Source Procedure Growth Status 12/09/17 20:32 Blood Peripheral Aerobic Blood Culture - Preliminary NO GROWTH IN 3 DAYS Resulted 12/09/17 20:32 Blood Peripheral Anaerobic Blood Culture - Preliminary NO GROWTH IN 3 DAYS Resulted 12/09/17 20:23 Blood Peripheral Aerobic Blood Culture - Preliminary NO GROWTH IN 3 DAYS Resulted 12/09/17 20:23 Blood Peripheral Anaerobic Blood Culture - Preliminary NO GROWTH IN 3 DAYS Resulted 12/09/17 18:43 Cerebral Spinal Fluid Lumbar Puncture Gram Stain - Final Complete 12/09/17 18:43 Cerebral Spinal Fluid Lumbar Puncture CSF Culture - Final NO GROWTH IN 72 HOURS Complete PHYSICAL EXAMINATION GENERAL: No acute distress. Awake and alert. Clear mentation. HEENT: The head is atraumatic. Extraocular movements appears grossly intact. Pupils are reactive to light. No icterus. Oropharynx with moist mucosa. No visible lesions. NECK: Supple. No swelling. No adenopathy. LUNGS: Clear breath sounds. HEART: Regular, S1 and S2, no murmurs. ABDOMEN: Obese, soft. No tenderness. EXTREMITIES: No clubbing, cyanosis or edema. SKIN: No rash. NEUROLOGIC: No gross focal finding. PSYCH: Calm and cooperative. IMPRESSION Acute change in mental status in patient who presented with a headache, fever and elevated white blood cell count. Viral testing for HSV is pending. Potentially she could have a viral infection. RECOMMENDATIONS 1. Continue acyclovir. 2. Continue ceftriaxone. 3. Monitor spinal fluid testing until completion and follow the HSV testing on the cerebrospinal fluid. 4. Change Ceftriaxone to cefuroxime. 5. Adjustment of antibiotics to be made pending on results. Dr Liliane Winkler covering for ID PO tomorrow. Allan Soria MD Dec 12, 2017 18:40
[2017-12-12] MEDS ORDERED: traZODone HCL 50 MG TAB PO ONE (22:00)
[2017-12-12] MEDS: PRAVASTATIN SOD 40 MG TAB PO SCH (22:03)
[2017-12-12] MEDS: CEFUROXIME AXETIL 500 MG TAB PO SCH (22:03)
[2017-12-13] VITALS: BP 162/78; PULSE 70; RESP 20; TEMP 97.2; O2SAT 96
[2017-12-13] MEDS: DEXAMETHASONE SOD PHOS 4 MG/ML VIAL IV PUSH SCH ×3 (00:11→12:00)
[2017-12-13] MEDS: CHLORHEXIDINE GLUCONATE 2 % 1 PACK (2 CLOTHS)(taper/protocol) TOPICAL SCH (01:28)
[2017-12-13 04:00] VITALS: BP 163/79; PULSE 67; RESP 22; TEMP 96.3; O2SAT 96
[2017-12-13] MEDS: ACYCLOVIR INJ 700 MG in SODIUM CHLORIDE 0.9% INJ 100 ML IV SCH (05:53)
[2017-12-13 07:46] LABS: AUTOMATED NEUTROPHIL # 8.4 TH/MM3 (1.8-7.7); BASOPHIL % 0.1 % (0.0-2.0); CHLORIDE 107 MEQ/L (98-107); HEMATOCRIT 35.8 % (35.0-46.0); LYMPH % 14.9 % (9.0-44.0); LYMPHOCYTE # 1.6 TH/MM3 (1.0-4.8); MEAN CELL VOLUME 90.7 FL (80.0-100.0); MEAN CORPUSCULAR HEMOGLOBIN 30.4 PG (27.0-34.0); MEAN CORPUSCULAR HGB CONC 33.4 % (32.0-36.0); MEAN PLATELET VOLUME 9.1 FL (7.0-11.0); MONO % 5.1 % (0.0-8.0); MONOCYTE # 0.5 TH/MM3 (0-0.9); NEUT % 79.9 % (16.0-70.0); PLATELET COUNT 221 TH/MM3 (150-450); RED BLOOD COUNT 3.94 MIL/MM3 (4.00-5.30); RED CELL DISTRIBUTION WIDTH 12.1 % (11.6-17.2); SODIUM (NA) 140 MEQ/L (136-145); WHITE BLOOD COUNT 10.5 TH/MM3 (4.0-11.0)
[2017-12-13 07:53] LABS: CALCIUM 8.1 MG/DL (8.5-10.1)
[2017-12-13 07:54] LABS: ALBUMIN 2.9 GM/DL (3.4-5.0); BICARBONATE 21.8 MEQ/L (21.0-32.0); GLUCOSE,RANDOM 213 MG/DL (74-106)
[2017-12-13 08:00] VITALS: BP 141/71; PULSE 57; RESP 16; TEMP 96.6; O2SAT 94
[2017-12-13 08:01] VITALS: PULSE 58
[2017-12-13] MEDS: INSULIN NovoLIN REGULAR SUPPLEMENTAL SCALE SQ SCH ×2 (08:06→12:38)
[2017-12-13] MEDS: VENLAFAXINE HCL XR 75 MG CAP PO SCH (08:06)
[2017-12-13 08:07] LABS: ALKALINE PHOSPHATASE 70 U/L (45-117); ALT (GPT) 25 U/L (10-53); AST (GOT) 19 U/L (15-37); BLOOD UREA NITROGEN 19 MG/DL (7-18); CREATININE 0.54 MG/DL (0.50-1.00); GLOMERULAR FILTRATION RATE 113 ML/MIN (>89); PHOSPHORUS 3.2 MG/DL (2.5-4.9); TOTAL BILIRUBIN ADULT 0.3 MG/DL (0.2-1.0); TOTAL PROTEIN 6.2 GM/DL (6.4-8.2)
[2017-12-13] MEDS: CEFUROXIME AXETIL 500 MG TAB PO SCH (08:07)
[2017-12-13] MEDS: LISINOPRIL 5 MG TAB PO SCH (08:08)
[2017-12-13] MEDS: ASPIRIN 325 MG TAB PO SCH (08:08)
[2017-12-13 08:35] LABS: HSV 1,PCR Negative (Negative)
[2017-12-13 10:02] LABS: FREE T4 0.95 NG/DL (0.76-1.46)
[2017-12-13] MEDS ORDERED: LISI10TA3 PO (12:38)
--- NOTE | 2017-12-13 12:40 | HHI.DCPOC ---
Discharge Care Plan Diagnosis: (1) Aseptic meningitis (2) Encephalopathy Goals to Promote Your Health * To prevent worsening of your condition and complications * To maintain your health at the optimal level Directions to Meet Your Goals Take your medications as prescribed Follow your dietary instruction Follow activity as directed Keep your appointments as scheduled Take your immunizations and boosters as scheduled If your symptoms worsen call your PCP, if no PCP go to Urgent Care Center or Emergency Room Smoking is Dangerous to Your Health. Avoid second hand smoke Call the 24-hour hour crisis hotline for domestic abuse at Tj Martin MD Dec 13, 2017 12:40
--- NOTE | 2017-12-13 12:42 | HHI.DS ---
Discharge Summary Admission Date Dec 09, 2017 at 16:26 Discharge Date: Dec 13, 2017 Admitting Diagnosis AMS (1) Encephalopathy ICD Code: G93.40 - Encephalopathy, unspecified (2) Aseptic meningitis ICD Code: G03.0 - Nonpyogenic meningitis Procedures RAD Post Procedure Prog Note Post Procedure Progress Note Pre Procedure Diagnosis: (1) Altered mental status Post Procedure Diagnosis: (1) Altered mental status Procedure Date: Dec 09, 2017 Supervising Radiologist: Jc Marc Proceduralist/Assist: RT Patito(R)(), RT Fabi(R) Anesthesia: Local Plan of Activity Patient to Unit: Nursing Unit Patient Condition: Fair See PACS Report for procedural detail/treatment Vascular-Arterial Rad Proc Vascular-Arterial Procedure Vascular-Venous Rad Proc Vascular-Venous Procedure Radiology Drainage Drainage Procedure Feeding Tube Imaging Evaluation Imaging Evaluation Spinal Radiology Procedures Spinal Procedure Lumbar Puncture L3-L4 Fluid Removal (CCs): 12 Fluid Description: Clear Puncture Time: 18:45 Brief History - From Admission 67-year-old white female being admitted for encephalopathy, possible undiagnosed intracranial hx. history is limited as the patient is not a great historian likely from her current medical condition. Son and [id number] at bedside. Patient was in her usual state of health until sometime yesterday evening when she was playing a game and was noted to be intermittently spacing out. Later this morning her neighbors found the patient to be having a headache associated with some vomiting. They noticed that she was very confused and thus prompted her to seek medical attention. There are no reports of any falls or head trauma. Per the son, the patient has no substantial medical history except DM. There are no reports of any intracranial processes including tumors or strokes in the patient. FH: Report of a CVA in the family. Social hx entails that the patient lives by herself and there is no smoking hx. CBC/BMP: 12/13/17 0705 12/13/17 0705 Significant Findings Laboratory Tests Test 12/11/17 06:07 12/13/17 07:05 Triglycerides Level 175 MG/DL (42-150) Cholesterol Level 208 MG/DL (120-200) LDL Cholesterol 131 MG/DL (0-99) Red Blood Count 3.94 MIL/MM3 (4.00-5.30) Neutrophils (%) (Auto) 79.9 % (16.0-70.0) Neutrophils # (Auto) 8.4 TH/MM3 (1.8-7.7) Blood Urea Nitrogen 19 MG/DL (7-18) Random Glucose 213 MG/DL (74-106) Total Protein 6.2 GM/DL (6.4-8.2) Albumin 2.9 GM/DL (3.4-5.0) Calcium Level 8.1 MG/DL (8.5-10.1) Thyroid Stimulating Hormone 3rd Gen 0.228 uIU/ML (0.358-3.740) Imaging Last Impressions Brain MRI 12/10/17 0600 Signed Impressions: Service Date/Time: Sunday, December 10, 2017 15:30 - CONCLUSION: 1. Chronic white matter changes are noted bilaterally. This is characteristic of ischemic demyelinization. 2. No acute pathology. Kvng Brown MD Neck Magnetic Resonance Angiography 12/10/17 0000 Signed Impressions: Service Date/Time: Sunday, December 10, 2017 16:03 - CONCLUSION: 1. There is some tortuosity involving the proximal portions of the right and left common carotid arteries. 2. There is some tortuosity of the right internal carotid artery. 3. No focal high-grade or significant stenosis. Kvng Brown MD Head Magnetic Resonance Angiography 12/10/17 0000 Signed Impressions: Service Date/Time: Sunday, December 10, 2017 15:30 - CONCLUSION: No acute intracranial vascular abnormality is identified. Jc Wilhelm MD Head CT 12/09/17 1331 Signed Impressions: Service Date/Time: Saturday, December 09, 2017 13:54 - CONCLUSION: 1. 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 2. No acute intracranial abnormality is identified. Severino Fabian MD Lumbar Puncture Fluoroscopy 12/09/17 0000 Signed Impressions: Service Date/Time: Saturday, December 09, 2017 18:30 - CONCLUSION: Uncomplicated fluoroscopically guided lumbar puncture. Jc Marc MD Chest X-Ray 12/09/17 0000 Signed Impressions: Service Date/Time: Saturday, December 09, 2017 18:16 - CONCLUSION: 1. No acute cardiopulmonary disease. Ej Rivas MD PE at Discharge Sitting up in chair, fully oriented to person place time. Insight is intact. Ambulate without difficulty. Has 5 out of 5 strength in all 4 extremities. No facial droop, no slurred speech, no nuchal rigidity. Hospital Course Patient was admitted originally for suspected undiagnosed subarachnoid hemorrhage. CT scan was negative. LP was unremarkable for any particular bleed. Patient did spike a fever and was started with antivirals and antibiotics for coverage for possible meningitis. Infectious disease was consulted and followed the patient. Patient's fever stopped and her encephalopathy had resolved. Bacterial cultures were negative. [facility]SEKEEPER imaging was also negative including MRI. Patient has been maximal benefit from hospitalization and is clinically stable for discharge. She was counseled to f/ u with neurology as outpatient for general checkup and f/u on remaining lab results as outpatient. Pt Condition on Discharge: Stable Discharge Disposition: Disch w/ Home Health Serv Discharge Time: <= 30 minutes Discharge Instructions Follow up Referrals: Neurology - 2 Weeks PCP Follow-up - 2 Weeks New Medications: Lisinopril (Lisinopril) 10 Mg Tab 10 MG PO DAILY, #30 TAB 0 Refills Continued Medications: Clonazepam (Clonazepam) 0.5 Mg Tab 0.5 MG PO BID, #60 TAB 0 Refills Metformin (Metformin) 500 Mg Tab 500 MG PO BIDPC for Blood Sugar Management, #60 TAB 0 Refills Pravastatin (Pravastatin) 40 Mg Tab 40 MG PO HS for Cholesterol Management, #30 TAB 0 Refills Promethazine (Phenergan) 25 Mg Tablet 25 MG PO Q6H PRN for NAUSEA OR VOMITING, TAB 0 Refills Tramadol (Tramadol) 50 Mg Tab 50 MG PO Q6H PRN for PAIN, TAB 0 Refills Tj Martin MD Dec 13, 2017 12:42
--- NOTE | 2017-12-13 12:44 | HHI.IDPN ---
Subjective Subjective Remarks chart reviewed 67 yo F with fever, MS change and abnormal CSF (mild lymphocytic pleocytosis) Her headache and MS change recsolved No fever Gissell clx and HSV negative Antibiotics acyclovir CFTX Allergies: Coded Allergies: No Known Allergies (Unverified , 12/09/17) Objective . Vital Signs Date Time Temp Pulse Resp B/P (MAP) Pulse Ox O2 Delivery O2 Flow Rate FiO2 12/13/17 08:01 58 12/13/17 04:00 96.3 67 22 163/79 (107) 96 12/13/17 00:00 97.2 70 20 162/78 (106) 96 12/12/17 21:25 94 21 12/12/17 21:00 57 12/12/17 20:00 97.2 60 20 192/93 (126) 96 12/12/17 17:32 96.3 64 20 171/76 (107) 96 12/12/17 16:00 97.9 66 31 150/71 (97) 93 12/12/17 15:00 66 31 150/71 (97) 93 12/12/17 14:00 58 12/12/17 14:00 60 27 149/59 (89) 93 12/12/17 13:00 74 26 150/72 (98) 93 . Laboratory Tests Test 12/13/17 07:05 White Blood Count 10.5 TH/MM3 Red Blood Count 3.94 MIL/MM3 Hemoglobin 12.0 GM/DL Hematocrit 35.8 % Mean Corpuscular Volume 90.7 FL Mean Corpuscular Hemoglobin 30.4 PG Mean Corpuscular Hemoglobin Concent 33.4 % Red Cell Distribution Width 12.1 % Platelet Count 221 TH/MM3 Mean Platelet Volume 9.1 FL Neutrophils (%) (Auto) 79.9 % Lymphocytes (%) (Auto) 14.9 % Monocytes (%) (Auto) 5.1 % Eosinophils (%) (Auto) 0.0 % Basophils (%) (Auto) 0.1 % Neutrophils # (Auto) 8.4 TH/MM3 Lymphocytes # (Auto) 1.6 TH/MM3 Monocytes # (Auto) 0.5 TH/MM3 Eosinophils # (Auto) 0.0 TH/MM3 Basophils # (Auto) 0.0 TH/MM3 CBC Comment DIFF FINAL Differential Comment Laboratory Tests Test 12/13/17 07:05 Blood Urea Nitrogen 19 MG/DL Creatinine 0.54 MG/DL Random Glucose 213 MG/DL Total Protein 6.2 GM/DL Albumin 2.9 GM/DL Calcium Level 8.1 MG/DL Phosphorus Level 3.2 MG/DL Magnesium Level 2.0 MG/DL Alkaline Phosphatase 70 U/L Aspartate Amino Transf (AST/SGOT) 19 U/L Alanine Aminotransferase (ALT/SGPT) 25 U/L Total Bilirubin 0.3 MG/DL Sodium Level 140 MEQ/L Potassium Level 3.5 MEQ/L Chloride Level 107 MEQ/L Carbon Dioxide Level 21.8 MEQ/L Anion Gap 11 MEQ/L Estimat Glomerular Filtration Rate 113 ML/MIN Free Thyroxine 0.95 NG/DL Thyroid Stimulating Hormone 3rd Gen 0.228 uIU/ML Imaging Last Impressions Brain MRI 12/10/17 0600 Signed Impressions: Service Date/Time: Sunday, December 10, 2017 15:30 - CONCLUSION: 1. Chronic white matter changes are noted bilaterally. This is characteristic of ischemic demyelinization. 2. No acute pathology. Kvng Brown MD Neck Magnetic Resonance Angiography 12/10/17 0000 Signed Impressions: Service Date/Time: Sunday, December 10, 2017 16:03 - CONCLUSION: 1. There is some tortuosity involving the proximal portions of the right and left common carotid arteries. 2. There is some tortuosity of the right internal carotid artery. 3. No focal high-grade or significant stenosis. Kvng Brown MD Head Magnetic Resonance Angiography 12/10/17 0000 Signed Impressions: Service Date/Time: Sunday, December 10, 2017 15:30 - CONCLUSION: No acute intracranial vascular abnormality is identified. Jc Wilhelm MD Head CT 12/09/17 1331 Signed Impressions: Service Date/Time: Saturday, December 09, 2017 13:54 - CONCLUSION: 1. 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 2. No acute intracranial abnormality is identified. Severino Fabian MD Lumbar Puncture Fluoroscopy 12/09/17 0000 Signed Impressions: Service Date/Time: Saturday, December 09, 2017 18:30 - CONCLUSION: Uncomplicated fluoroscopically guided lumbar puncture. Jc Marc MD Chest X-Ray 12/09/17 0000 Signed Impressions: Service Date/Time: Saturday, December 09, 2017 18:16 - CONCLUSION: 1. No acute cardiopulmonary disease. Ej Rivas MD Physical Exam GENERAL: No acute distress. Awake and alert. Clear mentation. HEENT: The head is atraumatic. Extraocular movements appears grossly intact. Pupils are reactive to light. No icterus. Oropharynx with moist mucosa. No visible lesions. NECK: Supple. No swelling. No adenopathy. LUNGS: Clear breath sounds. HEART: Regular, S1 and S2, no murmurs. ABDOMEN: Obese, soft. No tenderness. EXTREMITIES: No clubbing, cyanosis or edema. SKIN: No rash. NEUROLOGIC: No gross focal finding. PSYCH: Calm and cooperative. Assessment & Plan Remarks IMPRESSION Acute change in mental status in patient who presented with a headache, fever and elevated white blood cell count. Viral testing for HSV is negative Possible viral meningitis, self limited with complete resolution of smx RECOMMENDATIONS 1. dc acyclovir. 2. dc ceftriaxone. 3. dc sterroids OK to dc pt home today fu with neurologist Allyssa Woods Dr, MD Dec 13, 2017 12:44
--- NOTE | 2017-12-13 12:50 | HHI.FF ---
Face to Face Verification Diagnosis: (1) Aseptic meningitis (2) Encephalopathy Physical Therapy Order: Evaluate and Treat Occupational Therapy Order: Evaluate and Treat Home Health Nursing Order: Signs/symptoms of disease process Nursing assessment with vital signs I have seen patient Syed Reyes on 12/13/17. My clinical findings support the need for the requested home health care services because: Limited ability to care for self I certify that my clinical findings support that this patient is homebound because: Unsafe to leave home unassisted Tj Martin MD Dec 13, 2017 12:50
[2017-12-13] MEDS ORDERED: DEXA4TAB PO (12:52)
[2017-12-13 16:02] LABS: HEMOGLOBIN A1C 6.7 % (4.3-6.0)
[2017-12-14 10:17] LABS: RPR SCREEN FOR REFLEX NON-REACTIVE (NON-REACTVE)
== END 2017-12-13 14:32 | disposition home health service (06) | DRG 97 ==
LOC: PHED 12:48 → PHEDA 16:26 → PH3B 17:11 → PHICU 19:00 → PH3A 12-12 17:18
PROVIDERS: ADMIT Hospitalist; ATTEND Hospitalist
PROC: 00JU3ZZ Inspection of Spinal Canal, Percutaneous Approach (ICD-10-PCS; principal; 2017-12-09)
PROC: 009U3ZX Drainage of Spinal Canal, Percutaneous Approach, Diagnostic (ICD-10-PCS; 2017-12-09)
DX: G03.0 Nonpyogenic meningitis (principal); G93.40 Encephalopathy, unspecified; N39.0 Urinary tract infection, site not specified; I10 Essential (primary) hypertension; E11.9 Type 2 diabetes mellitus without complications; B96.20 Unspecified Escherichia coli [E. coli] as the cause of diseases classified elsewhere; R47.01 Aphasia; F41.9 Anxiety disorder, unspecified; R11.2 Nausea with vomiting, unspecified; R09.02 Hypoxemia; Z82.3 Family history of stroke
CPT/HCPCS: 62270; 70450; 70544; 70548; 70551; 71046; 77003; 80048; 80053; 80061; 80307; 81001; 82550; 82945; 82948; 83036; 83605; 83735; 84100; 84157; 84439; 84443; 84484; 85025; 85610; 85730; 86403; 86592; 87040; 87070; 87077; 87086; 87186; 87205; 87529; 87641; 89051; 93005; 93306; 96374; 96375; A9579; J0133; J0290; J0696; J0780; J1100; J1200; J3370; J7030; J7040; P9612